=== PATIENT | female | born 1935 | race Caucasian/White ===

== ENCOUNTER 2020-04-03 10:06 | Inpatient (IN) | payer MEDICARE, BC ==
[~2020-04-03] VITALS: Ht 167.6 cm; Wt 63.5 kg
[2020-04-03] MEDS ORDERED: IV NS 0.9% 1,000 ML IV ONE (10:11)
--- NOTE | 2020-04-03 10:40 | NUR ---
[facility] for diarrhea, lethargy. per ems +covid 19. On room air, breathing evenly and unlabored. connected to the monitor and pulse ox. kept comfortable, will continue to monitor accordingly.
[2020-04-03] MEDS ORDERED: ACID1TAB14 PO (10:43)
[2020-04-03] MEDS ORDERED: CHOL100045 PO (10:43)
[2020-04-03] MEDS ORDERED: BIOT5000 PO (10:43)
[2020-04-03] MEDS ORDERED: CALC-20 PO (10:43)
[2020-04-03] MEDS ORDERED: MECL-159 PO (10:43)
[2020-04-03] MEDS ORDERED: ALBU8.5H8 IH ×2 (10:43)
[2020-04-03] MEDS ORDERED: ATOR10TA PO (10:43)
[2020-04-03] MEDS ORDERED: ACET-868 PO (10:43)
[2020-04-03] MEDS ORDERED: TELM80TA2 PO (10:43)
[2020-04-03] MEDS ORDERED: MYRBETRIQ PO (10:43)
[2020-04-03] MEDS ORDERED: NUT.237L28 PO (10:43)
[2020-04-03] MEDS ORDERED: MAGN400T8 PO (10:43)
[2020-04-03] MEDS ORDERED: ASPI-1169 PO (10:43)
[2020-04-03] MEDS ORDERED: IBUP-2413 PO (10:43)
[2020-04-03] MEDS ORDERED: ALLO100T PO (10:43)
[2020-04-03] MEDS ORDERED: ESCI10TA PO (10:43)
[2020-04-03] MEDS ORDERED: FLUT16SP NS (10:43)
[2020-04-03] MEDS ORDERED: ACID1TAB12 PO (10:43)
[2020-04-03] MEDS ORDERED: HYDR25TA4 PO (10:43)
--- NOTE | 2020-04-03 11:00 | NUR ---
MOVE SHEET SUBMITTED
[2020-04-03 11:08] LABS: BASOPHILS % (AUTO) 0.8 % (0.0-2.0); EOSINOPHILS % (AUTO) 0.1 % (0.0-6.0); HEMATOCRIT 40 % (33-45); HEMOGLOBIN 13.3 g/dL (11.5-14.8); LYMPHOCYTES # (AUTO) 1.2 /CMM (0.8-4.8); LYMPHOCYTES % (AUTO) 18.6 % (20.0-44.0); MEAN CORPUSCULAR HGB CONC 34 g/dl (31.0-36.0); MEAN CORPUSCULAR VOLUME 93 fL (82-100); MONOCYTES # (AUTO) 0.6 /CMM (0.1-1.30); NEUTROPHILS # (AUTO) 4.4 /CMM (1.8-8.9); NEUTROPHILS % (AUTO) 70.5 % (43.0-81.0); PLATELET COUNT (AUTO) 176 /CMM (150-450); RED BLOOD CELL COUNT(AUTO) 4.26 MIL/uL (4.0-5.2); WHITE BLOOD COUNT (AUTO) 6.2 K/uL (4.3-11.0)
[2020-04-03 11:14] LABS: APPEARANCE,URINE Clear (CLEAR); BILIRUBIN,URINE Negative (NEGATIVE); BLOOD, URINE Moderate Ery/uL (NEGATIVE); COLOR,URINE Yellow (YELLOW); KETONES,URINE Negative (NEGATIVE); LEUKOCYTE ESTERASE ,URINE Negative (NEGATIVE); NITRITE, URINE Negative (NEGATIVE); PROTEIN,URINE 30 mg/dl (NEGATIVE); UGLUCOSE Negative (NEGATIVE); UROBILINOGEN,URINE 0.2 EU/dL (0.2)
[2020-04-03 11:17] LABS: CALCIUM, SERUM 8.1 mg/dL (8.5-10.1); CARBON DIOXIDE 20 mmol/L (21-32); CHLORIDE 102 mmol/L (98-107); CREATININE 0.8 mg/dL (0.6-1.3); GLUCOSE 105 mg/dL (74-106); POTASSIUM 3.3 mmol/L (3.5-5.1); SODIUM SERUM 135 mmol/L (136-145); UREA NITROGEN, BLOOD 19 mg/dL (7-18)
[2020-04-03 11:23] LABS: BACTERIA,URINE Few /HPF (None Seen); SQUAMOUS EPITHELIAL CELL,UR Few /HPF (None Seen); WBC,URINE 0-2 /HPF (0-3)
[2020-04-03 11:29] LABS: ALANINE AMINOTRANSFERASE 27 U/L (12-78); ALBUMIN 2.6 g/dL (3.4-5.0); ALKALINE PHOSPHATASE 64 U/L (46-116); ASPARTATE AMINOTRANSFERASE 51 U/L (15-37); B-TYPE NATRIURETIC PEPTIDE 310 PG/ML (0-125); BILIRUBIN,TOTAL 0.6 mg/dL (0.2-1.0); TOTAL PROTEIN, SERUM 6.6 g/dL (6.4-8.2)
--- NOTE | 2020-04-03 11:31 | NUR ---
GOT BED 208-1
--- NOTE | 2020-04-03 11:47 | NUR ---
covid 19 swab collected and sent to lab
--- NOTE | 2020-04-03 12:25 | NUR ---
covid 19 antigen collected and sent to lab
--- NOTE | 2020-04-03 12:46 | NUR ---
report given to Oksana NAVAS for norberto
--- NOTE | 2020-04-03 12:47 | NUR ---
wheeled patient via gurney accompanied by EMT in no distress. RN at bedside to assume care.
--- NOTE | 2020-04-03 13:10 | NUR ---
SVP BUSINESS DEVELOPMENT ADMISSION NOTES RECEIVED PATIENT FROM ER VIA [facility], ACCOMPANIED BY ONE ED STAFF. PT IS AWAKE/ORIENTED X 2-3. WITH ADMITTING DIAGNOSIS OF DIARRHEA. PT CLEAN AND DRY AT THIS TIME. PT INCONTINENT WITH BOWEL AND BLADDER. BODY CHECK DONE. ON ROOM AIR WITH O2 SAT OF 98%. RESPIRATION IS EVEN AND EASY WITH NO SHORTNESS OF BREATH. IV # 20 ON LEFT AC INTACT AND FLUSHING WELL. BED KEPT AT LOW POSITION. SAFETY PRECAUTION OBSERVED. CALL LIGHT LEFT WITHIN REACH. WILL CONTINUE TO MONITOR. Addendum: 04/03/20 at 1550 by GRETA AZAR RN NOTED SUPERFICIAL SKIN OPENING ON MID UPPER BACK UPON INITIAL ASSESSMENT. NO SIGNS OF INFECTION NOTED. WILL CONTINUE TO MONITOR.
[2020-04-03 13:30] LABS: CREATINE KINASE, TOTAL 516 U/L (26-192); FERRITIN 343 ng/mL (8-388)
[2020-04-03 13:34] LABS: C-REACTIVE PROTEIN 3.3 mg/dL (0.0-0.9)
[2020-04-03] MEDS ORDERED: MECLIZINE HCL 25 MG TABLET PO PRN (15:00)
[2020-04-03] MEDS ORDERED: ALBUTEROL SULFATE INH 18 GM HFA.AER.AD IH PRN (15:00)
[2020-04-03 16:00] VITALS: BP 132/62
[2020-04-03] MEDS ORDERED: ONDANSETRON HCL/PF 4 MG/2 ML VIAL IVP PRN (16:00)
[2020-04-03] MEDS ORDERED: Z GUARD REMEDY 2 OZ OINT TP PRN (16:00)
[2020-04-03 16:19] LABS: D-DIMER 1.19 mg/L(FEU (0.17-0.50)
[2020-04-03] MEDS ORDERED: ENOXAPARIN SODIUM 40 MG/0.4 ML DISP.SYRIN SQ SCH (16:30)
[2020-04-03] MEDS ORDERED: PIPERACILLIN /TAZOBACTAM 3.375 G in IV D5W 50 ML IV ONE (17:00)
[2020-04-03] MEDS: ESCITALOPRAM OXALATE (10 MG) 10 MG TABLET PO SCH (18:34)
[2020-04-03] MEDS: MAGNESIUM OXIDE 400 MG TABLET PO SCH (18:34)
--- NOTE | 2020-04-03 18:48 | NUR ---
BICYCLE II ASSEMBLER CLOSING NOTES PT REMAINS IN BED RESTING. ALERT AND ORIENTED X2-3. NO ACUTE DISTRESS NOTED. RESPIRATION IS EVEN AND EASY WITH NO SOB. ALL DUE MEDS GIVEN ORDERED. SL IV #20 ON LEFT AC REMAINS INTACT. SAFETY PRECAUTION OBSERVED. CALL LIGHT LEFT WITHIN REACH. WILL ENDORSE TO NEXT SHIFT FOR MAGY.
--- NOTE | 2020-04-03 19:42 | NUR ---
MS RN OPENING NOTES PATIENT AWAKE IN BED. A/OX1-2. STABLE ON RA; NO S/S OF ACUTE RESPIRATORY DISTRESS; BREATHING IS EVEN AND UNLABORED. PATIENT DENIES PAIN AT THIS TIME. IV PRESENT ON LEFT AC, SIZE 20, INTACT & PATENT, NS RUNNING TKO. CONTACT/DROPLET PRECAUTIONS IN PLACE FOR POSITIVE COVID. SAFETY MEASURES IN PLACE AND PATIENT'S NEEDS MET. BED LOCKED, ALARM ON, SIDE RAILS X3, CALL LIGHT WITHIN REACH. WILL CONTINUE TO MONITOR.
[2020-04-03 20:26] VITALS: BP 119/72
--- NOTE | 2020-04-03 20:54 | NUR ---
PT AGITATED AND REFUSED AN ECHO AND WANTED THE EXAM DONE TOMORROW.
[2020-04-03] MEDS ORDERED: PIPERACILLIN /TAZOBACTAM 2.25 G in IV D5W 50 ML IV SCH (21:00)
[2020-04-03] MEDS: ATORVASTATIN 10 MG TABLET PO SCH (21:39)
[2020-04-03] MEDS: VALSARTAN 80 MG TABLET PO SCH (21:39)
[2020-04-03] MEDS: ENOXAPARIN SODIUM 40 MG/0.4 ML DISP.SYRIN SQ SCH (21:40)
[2020-04-04] MEDS: PIPERACILLIN /TAZOBACTAM 3.375 G in IV D5W 100 ML IV SCH ×4 (00:54→23:00)
--- NOTE | 2020-04-04 07:36 | NUR ---
PEST CONTROL SERVICE SALES AGENT CLOSING NOTES PATIENT SLEEPING, EASY TO AWAKEN. A/OX1-2. STABLE ON RA; NO S/S OF ACUTE RESPIRATORY DISTRESS; BREATHING IS EVEN AND UNLABORED. NO S/S OF PAIN NOTED. IV PRESENT ON LEFT AC, SIZE 20, INTACT & PATENT, NS RUNNING TKO. CONTACT/DROPLET PRECAUTIONS IN PLACE FOR POSITIVE COVID. SAFETY MEASURES IN PLACE AND PATIENT'S NEEDS MET. BED LOCKED, ALARM ON, SIDE RAILS X3, CALL LIGHT WITHIN REACH. WILL ENDORSE TO DAY SHIFT RN PLAN OF CARE.
[2020-04-04] MEDS: PANTOPRAZOLE 40 MG TABLET.DR PO SCH (07:51)
[2020-04-04 07:58] LABS: BASOPHILS % (AUTO) 0.7 % (0.0-2.0); EOSINOPHILS % (AUTO) 0.1 % (0.0-6.0); HEMATOCRIT 41 % (33-45); HEMOGLOBIN 13.8 g/dL (11.5-14.8); LYMPHOCYTES # (AUTO) 1.3 /CMM (0.8-4.8); MEAN CORPUSCULAR HGB CONC 34 g/dl (31.0-36.0); MEAN CORPUSCULAR VOLUME 92 fL (82-100); MONOCYTES # (AUTO) 0.7 /CMM (0.1-1.30); MONOCYTES % (AUTO) 15.9 % (2.0-12.0); NEUTROPHILS # (AUTO) 2.4 /CMM (1.8-8.9); NEUTROPHILS % (AUTO) 54.3 % (43.0-81.0); PLATELET COUNT (AUTO) 171 /CMM (150-450); RED BLOOD CELL COUNT(AUTO) 4.47 MIL/uL (4.0-5.2); WHITE BLOOD COUNT (AUTO) 4.5 K/uL (4.3-11.0)
[2020-04-04 08:00] VITALS: BP 103/52
--- NOTE | 2020-04-04 08:24 | NUR ---
RN NOTES CALLED PHARMACY TO REQUEST ZOSYN IV , WILL ADMINISTER WHEN IT ARRIVES.
[2020-04-04] MEDS: ALLOPURINOL 100 MG TABLET PO SCH (08:37)
[2020-04-04] MEDS: ACIDOPHILUS/BULGARICUS 1 EACH TAB.CHEW PO SCH (08:37)
[2020-04-04] MEDS: CALCIUM CARB 600MG /VIT D 1 EACH TABLET PO SCH (08:37)
[2020-04-04] MEDS: ASPIRIN 81 MG TAB.CHEW PO SCH (08:37)
[2020-04-04] MEDS: VALSARTAN 80 MG TABLET PO SCH ×2 (08:38→21:41)
[2020-04-04] MEDS: DEXAMETHASONE SOD PHOSPHATE 10 MG/ML VIAL IV SCH (08:38)
[2020-04-04 08:49] LABS: CALCIUM, SERUM 8.4 mg/dL (8.5-10.1); MAGNESIUM 1.9 mg/dL (1.8-2.4); PHOSPHORUS 2.7 mg/dL (2.5-4.9); POTASSIUM 2.9 mmol/L (3.5-5.1)
[2020-04-04 08:53] LABS: LYMPHOCYTES % (MANUAL) 35 % (16-48); NEUTROPHILS % (MANUAL) 53 (42-76)
[2020-04-04 08:54] LABS: MONOCYTES % (MANUAL) 12 % (0-11.0)
[2020-04-04 09:00] LABS: THYROID STIMULATING HORMONE 1.601 uIU/mL (0.358-3.74)
[2020-04-04] MEDS: ESCITALOPRAM OXALATE (10 MG) 10 MG TABLET PO SCH (17:10)
[2020-04-04] MEDS: MAGNESIUM OXIDE 400 MG TABLET PO SCH (17:11)
--- NOTE | 2020-04-04 18:17 | NUR ---
RN CLOSING NOTES PATIENT SLEEPING, A/OX1-2. STABLE ON RA; NO S/S OF ACUTE RESPIRATORY DISTRESS; BREATHING IS EVEN AND UNLABORED. NO S/S OF PAIN NOTED. IV PRESENT ON LEFT AC, SIZE 20, INTACT & PATENT, NS RUNNING TKO. CONTACT/DROPLET PRECAUTIONS IN PLACE FOR POSITIVE COVID. SAFETY MEASURES IN PLACE AND PATIENT'S NEEDS MET. BED LOCKED, ALARM ON, SIDE RAILS X3, CALL LIGHT WITHIN REACH. WILL ENDORSE TO PM SHIFT RN FOR CONTINUITY OF CARE.
--- NOTE | 2020-04-04 18:53 | NUR ---
rn notes Patient will have MRI, Called family to verify if patient has any metals, son Matthew did not picker feeder , next person is daughter Rivka. per Shiloh she will call back to verify.
--- NOTE | 2020-04-04 18:53 | NUR ---
RN CLOSING NOTES PATIENT SLEEPING, A/OX1-2. STABLE ON RA; NO S/S OF ACUTE RESPIRATORY DISTRESS; BREATHING IS EVEN AND UNLABORED. NO S/S OF PAIN NOTED.PATIENT IS NPO. PATIENT WILL HAVE A SWALLOW EVAL TOMORROW. PATIENT WILL GO FOR MRI SHORTLY. IV PRESENT ON LEFT AC, SIZE 20, INTACT & PATENT, NS RUNNING TKO. CONTACT/DROPLET PRECAUTIONS IN PLACE FOR POSITIVE COVID. SAFETY MEASURES IN PLACE AND PATIENT'S NEEDS MET. BED LOCKED, ALARM ON, SIDE RAILS X3, CALL LIGHT WITHIN REACH. WILL ENDORSE TO PM SHIFT RN FOR CONTINUITY OF CARE.
--- NOTE | 2020-04-04 19:00 | NUR ---
MS/RN OPENING NOTES: RECEIVED PT IN BED, RESTING. A/OX2. WITH EPISODES OF CONFUSION. VERBALLY RESPONSIVE AND ABLE TO MAKE NEEDS KNOWN. NO SOB NOTED. ON 2L OXYGEN VIA NC. NO S/S OF DISTRESS. BREATHING EVEN AND UNLABORED. SKIN INTACT. IV ON THE LEFT AC #20G SL. NO C/O PAIN AT THIS TIME. SAFETY MEASURES IN PLACE. BED IN LOW, LOCKED POSITION WITH SR UPX2. BED ALARM ON, CALL LIGHT WITHIN REACH. WILL CONTINUE TO MONITOR ACCORDINGLY.
[2020-04-04 20:00] VITALS: BP 118/65
[2020-04-04] MEDS: ENOXAPARIN SODIUM 40 MG/0.4 ML DISP.SYRIN SQ SCH (21:36)
[2020-04-04] MEDS: ATORVASTATIN 10 MG TABLET PO SCH (21:38)
--- NOTE | 2020-04-04 22:00 | NUR ---
MS/RN NOTES: MEDS GIVEN CRUSHED WITH APPLE SAUCE. TOLERATED WELL. WILL CONTINUE TO MONITOR.
[2020-04-05 07:01] LABS: BASOPHILS % (AUTO) 0.2 % (0.0-2.0); EOSINOPHILS % (AUTO) 0.1 % (0.0-6.0); HEMATOCRIT 42 % (33-45); HEMOGLOBIN 14.5 g/dL (11.5-14.8); LYMPHOCYTES # (AUTO) 0.9 /CMM (0.8-4.8); LYMPHOCYTES % (AUTO) 28.1 % (20.0-44.0); MEAN CORPUSCULAR HGB CONC 34 g/dl (31.0-36.0); MEAN CORPUSCULAR VOLUME 92 fL (82-100); MONOCYTES # (AUTO) 0.5 /CMM (0.1-1.30); MONOCYTES % (AUTO) 15.2 % (2.0-12.0); NEUTROPHILS # (AUTO) 1.8 /CMM (1.8-8.9); NEUTROPHILS % (AUTO) 56.4 % (43.0-81.0); PLATELET COUNT (AUTO) 165 /CMM (150-450); WHITE BLOOD COUNT (AUTO) 3.1 K/uL (4.3-11.0)
--- NOTE | 2020-04-05 07:15 | NUR ---
MS/RN NOTES: PT ABLE TO TURN AND REPOSITION HERSELF ON THE BED. KEPT WARM AND COMFORTABLE, CLEAN AND DRY THROUGHOUT THE SHIFT.
--- NOTE | 2020-04-05 07:20 | NUR ---
MS/RN CLOSING NOTES: PT REMAINS IN BED, RESTING. REMAINS A/OX2. WITH EPISODES OF CONFUSION. VERBALLY RESPONSIVE AND ABLE TO MAKE NEEDS KNOWN. NO SOB NOTED. ON 2L OXYGEN VIA NC. NO S/S OF DISTRESS. BREATHING EVEN AND UNLABORED. NO SIGNIFICANT CHANGES IN CONDITION. HAD 1 SOFT BM FOR THE WHOLE SHIFT BUT NO DIARRHEA. IV ON THE LEFT AC #20G SL. NO C/O PAIN AT THIS TIME. SAFETY MEASURES IN PLACE. BED IN LOW, LOCKED POSITION WITH SR UPX2. BED ALARM ON, CALL LIGHT WITHIN REACH. ALL MEDS GIVEN ORDERED. ALL NURSING NEEDS MET AND RENDERED. ENDORSED TO DAY SHIFT FOR MAGY.
[2020-04-05 07:25] LABS: CALCIUM, SERUM 8.3 mg/dL (8.5-10.1); CREATININE 1.2 mg/dL (0.6-1.3); PHOSPHORUS 3.1 mg/dL (2.5-4.9); POTASSIUM 3.2 mmol/L (3.5-5.1)
--- NOTE | 2020-04-05 07:26 | NUR ---
MS/RN OPENING NOTES RECEIVED PATIENT ON BED. PATIENT IN NO APPARENT RESPIRATORY DISTRESS NOTED. NO COMPLAINED OF PAIN AT THIS TIME. WILL CONTINUE TO MONITOR.
[2020-04-05] MEDS: PANTOPRAZOLE 40 MG TABLET.DR PO SCH (07:40)
[2020-04-05] MEDS: PIPERACILLIN /TAZOBACTAM 3.375 G in IV D5W 100 ML IV SCH ×3 (07:43→23:31)
[2020-04-05 08:10] VITALS: BP 142/82
[2020-04-05] MEDS: DEXAMETHASONE SOD PHOSPHATE 10 MG/ML VIAL IV SCH (09:24)
[2020-04-05] MEDS: CALCIUM CARB 600MG /VIT D 1 EACH TABLET PO SCH (09:25)
[2020-04-05] MEDS: VALSARTAN 80 MG TABLET PO SCH ×2 (09:25→21:19)
[2020-04-05] MEDS: ASPIRIN 81 MG TAB.CHEW PO SCH (09:25)
[2020-04-05] MEDS: ACIDOPHILUS/BULGARICUS 1 EACH TAB.CHEW PO SCH (09:25)
[2020-04-05] MEDS: ALLOPURINOL 100 MG TABLET PO SCH (09:25)
[2020-04-05] MEDS ORDERED: POTASSIUM CHLORIDE 20 MEQ POWDER PACKET PO ONE (11:00)
--- NOTE | 2020-04-05 17:42 | NUR ---
MS/RN NOTES PATIENT VERBALIZED THAT SHE WAS ANXIOUS, MD IS AWARE AND ORDER ATIVAN 0.5 MG 1 TAB PO. NOTED AND CARRIED OUT.
[2020-04-05] MEDS ORDERED: LORAZEPAM 0.5 MG TABLET PO ONE (17:50)
[2020-04-05] MEDS: MAGNESIUM OXIDE 400 MG TABLET PO SCH (18:21)
[2020-04-05] MEDS: ESCITALOPRAM OXALATE (10 MG) 10 MG TABLET PO SCH (18:22)
[2020-04-05 20:00] VITALS: BP 131/71
--- NOTE | 2020-04-05 20:03 | NUR ---
MS/RN NOTES PATIENT IS ON BED. NO COMPLAINED OF PAIN. NO RESPIRATORY DISTRESS NOTED. IV ANTIBIOTIC AND IV MEDICATION WAS NOT GIVEN DUE TO NO IV ACCESS MD AND WELL DIGGER IS AWARE, WAITING FOR MIDLINE NURSE. SEEN AND EXAMINED BY MD WITH ORDERS MADE AND CARRIED OUT. WILL ENDORSED TO SUPERVISOR BEET END FOR MAGY.
--- NOTE | 2020-04-05 20:30 | NUR ---
RN NOTES: COVID POSITIVE, PPE UTILIZED, WITH USE OF N95 AND FACESHIELD
[2020-04-05 20:32] VITALS: BP 131/71
--- NOTE | 2020-04-05 21:00 | NUR ---
COMPUTER PUBLISHER: RECEIVED FROM DAY RN DION. PT IN BED, AWAKE, A/O X1 TO SELF, ON 5L OXYGEN VIA NC, BUT PT KEPT TAKING OFF OXYGEN, RECEIVED WITH NO IV ACCESS, AWAITING FOR MIDLINE INSERTION. PT S/P RAPID RESPONSE IN AM AFTER AMBULATING, WAS FOUND ALMOST PASSING OUT. VS TAKEN AND RECORDED BY CULLET TRUCKER. MONITORING TEMPERATURE, COOLING MEASURES PROVIDED. ON SOFT DIET. RECEIVED CALL FROM PT'S DAUGHTER NAMED BLAZE MADSEN, PER DTR SHE IS THE DPOA FOR PT (MEDICAL/HEALTH AND FINANCIAL), WITH INSTRUCTIONS NOT TO RELEASE ANY INFORMATION TO SB MONTAÑO, HER SISTER. SHE CLAIMED THAT HER SISTER SB, STOLE MONEY FROM HER MOTHER AND THEY ARE CURRENTLY TALKING WITH PLANT ELECTRICIAN, PER BLAZE, ALL INFORMATION CAN ONLY BE RELEASE TO HER BEING DPOA. WILL POST A NOTE ON PT'S CHART TO MADE ASSIGNED TEAM AWARE, ALSO WILL WRITE ON ENDORSEMENT PAPER. SAFETY PRECAUTIONS FOR FALL INITAITED, CALL LIGHT IN REACH, WILL CONTINUE MONITORING PT.
[2020-04-05 21:15] VITALS: BP 140/71
[2020-04-05] MEDS: ATORVASTATIN 10 MG TABLET PO SCH (21:19)
[2020-04-05] MEDS: ACETAMINOPHEN 325 MG TABLET PO PRN (21:20)
[2020-04-05] MEDS: ENOXAPARIN SODIUM 40 MG/0.4 ML DISP.SYRIN SQ SCH (21:20)
--- NOTE | 2020-04-05 21:35 | NUR ---
RN NOTES: CONNECTED TO CONTINOUS PULSE OX MONITORING, ROSA ISELA IN USE, ON 5L NC, SPO2 96%, 88% ON RA, ALL DUE MEDS administered
--- NOTE | 2020-04-05 22:00 | NUR ---
RN NOTES: NOTIFIED RT LINSEY FOR CONTINUOUS PULSE OXIMETRY ORDER, PER LINSEY THERE IS NO AVAILABLE PULSE OX RIGHT NOW, CURRENTLY PT IS CONNECTED TO VITAL SIGN MACHINE WITH PULSE OXIMETRY.
--- NOTE | 2020-04-05 22:03 | NUR ---
rn notes: picc rn just arrived
--- NOTE | 2020-04-05 22:11 | NUR ---
rn notes: catalina midline g 18 inserted by sharath picc rn
[2020-04-06 04:00] VITALS: BP 122/71
--- NOTE | 2020-04-06 07:04 | NUR ---
END OF SHIFT REPORT: PT REMAINS A/O X1, ON 5L OXYGEN VIA NC, ON CONTINUOUS PULSE OX, SPO2 95%, IV ACCESS PATENT AND FLUSHING WELL, ON HL, NO S/S OF IV INFILTRATION NOTED. ALL DUE MEDS ADMINISTERED. VS REMAIN STABLE, NEEDS ATTENDED. NO EPISODE OF LOOSE BM NOTED THROUGH SHIFT. SAFETY PRECAUTIONS FOR FALL REMAIN ENGAGED, CALL LIGHT IN REACH, WILL ENDORSE TO DAY RN FOR CONTINUITY OF CARE.
--- NOTE | 2020-04-06 07:45 | NUR ---
RN NOTES RECEIVED PATIENT IN BED RESTING COMFORTABLY IN MODERATE HIGH BACK REST. A/O X1, ON 5L OXYGEN VIA NC, ON CONTINUOUS PULSE OX, SPO2 95%, NO SIGNS OF DISTRESS NOTED AT THIS TIMES. IV ACCESS ON CRUZ #18, MIDLINE, REMAINS PATENT AND INTACT, SAFETY MEASURES IN PLACE, BED IN LOWEST LOCKED POSITION WITH SIDE RAILS UP X2. CALL LIGHT IN REACH, WILL CONTINUE TO MONITOR.
[2020-04-06 08:20] LABS: BASOPHILS % (AUTO) 0.2 % (0.0-2.0); HEMATOCRIT 39 % (33-45); HEMOGLOBIN 13.1 g/dL (11.5-14.8); LYMPHOCYTES # (AUTO) 1.4 /CMM (0.8-4.8); LYMPHOCYTES % (AUTO) 29.6 % (20.0-44.0); MEAN CORPUSCULAR HGB CONC 34 g/dl (31.0-36.0); MEAN CORPUSCULAR VOLUME 91 fL (82-100); MONOCYTES # (AUTO) 0.4 /CMM (0.1-1.30); NEUTROPHILS # (AUTO) 2.9 /CMM (1.8-8.9); NEUTROPHILS % (AUTO) 62.2 % (43.0-81.0); PLATELET COUNT (AUTO) 158 /CMM (150-450); RED BLOOD CELL COUNT(AUTO) 4.27 MIL/uL (4.0-5.2); WHITE BLOOD COUNT (AUTO) 4.7 K/uL (4.3-11.0)
[2020-04-06 08:32] VITALS: BP 152/69
--- NOTE | 2020-04-06 08:40 | NUR ---
MS RN NOTES RECEIVED PATIENT FROM RN FOR CONTINUITY OF CARE. WILL CONTINUE TO MONITOR PATIENT.
[2020-04-06] MEDS: PIPERACILLIN /TAZOBACTAM 3.375 G in IV D5W 100 ML IV SCH ×2 (08:43→15:27)
[2020-04-06] MEDS: ASPIRIN 81 MG TAB.CHEW PO SCH (08:52)
[2020-04-06] MEDS: CALCIUM CARB 600MG /VIT D 1 EACH TABLET PO SCH (08:52)
[2020-04-06] MEDS: DEXAMETHASONE SOD PHOSPHATE 10 MG/ML VIAL IV SCH (08:53)
[2020-04-06] MEDS: ACIDOPHILUS/BULGARICUS 1 EACH TAB.CHEW PO SCH (08:54)
[2020-04-06] MEDS: PANTOPRAZOLE 40 MG TABLET.DR PO SCH (08:54)
[2020-04-06] MEDS: VALSARTAN 80 MG TABLET PO SCH ×2 (08:54→22:33)
[2020-04-06] MEDS: ALLOPURINOL 100 MG TABLET PO SCH (08:54)
[2020-04-06 09:20] LABS: CALCIUM, SERUM 8.1 mg/dL (8.5-10.1); CREATININE 1.3 mg/dL (0.6-1.3); PHOSPHORUS 2.4 mg/dL (2.5-4.9); POTASSIUM 3.2 mmol/L (3.5-5.1)
[2020-04-06] MEDS ORDERED: K PHOS NEUTRAL 250 MG TABLET PO ONE (15:30)
[2020-04-06 17:15] VITALS: BP 117/77
[2020-04-06] MEDS: ESCITALOPRAM OXALATE (10 MG) 10 MG TABLET PO SCH (18:13)
[2020-04-06] MEDS: MAGNESIUM OXIDE 400 MG TABLET PO SCH (18:13)
--- NOTE | 2020-04-06 18:45 | NUR ---
MS RN CLOSING NOTES PATIENT IN BED, SLEEP. DURING THE DAY PATIENT WOKEN UP AND ABLE TO ANSWER SOME QUESTIONS. PATIENT ON OXYGEN THERAPY VIA NASAL CANNULA @ 3LPM; BREATHING EVEN AND UNLABORED, NO SOB PRESENT DURING THE SHIFT. NO COMPLAINS OF PAIN. CRUZ MIDLINE PRESENT AND INTACT. ALL NEEDS ATTENDED TO THROUGHOUT THE DAY. SAFETY PRECAUTIONS IN PLACE; BED IN LOW POSITION AND LOCKED, RAILS UP X2, CALL LIGHT WITHIN REACH. WILL ENDORSE TO TIRE REPAIRER NURSE.
[2020-04-06 20:00] VITALS: BP 150/71
--- NOTE | 2020-04-06 20:24 | NUR ---
MSS2/RN DURING INITIAL ROUNDING ASSESSMENT, PATIENT WAS SLEEPING, APPEAR COMFORTABLE, BREATHING EVEN AND UNLABORED, CALL LIGHT IN REACH, FALL PRECAUTIONS PER PROTOCOL. WILL MONITOR.
[2020-04-06] MEDS: ENOXAPARIN SODIUM 40 MG/0.4 ML DISP.SYRIN SQ SCH (21:00)
[2020-04-06] MEDS ORDERED: ATORVASTATIN 10 MG TABLET ONE (22:16)
[2020-04-06] MEDS: ATORVASTATIN 10 MG TABLET PO SCH (22:36)
[2020-04-07] MEDS: PIPERACILLIN /TAZOBACTAM 3.375 G in IV D5W 100 ML IV SCH ×4 (00:43→23:01)
--- NOTE | 2020-04-07 06:13 | NUR ---
MS2/RN PATIENT SLEEPING, EASILY AROUSABLE, APPEAR COMFORTABLE, NO SIGNS OF DISTRESS NOTED, CALL LIGHT IN REACH, ALL NEEDS ATTENDED AT THIS TIME, WILL CONTINUE TO MONITOR.
--- NOTE | 2020-04-07 07:35 | NUR ---
RN NOTES RECEIVED PATIENT IN BED RESTING COMFORTABLY IN MODERATE HIGH BACK REST. A/O X1. NO SIGNS OF DISTRESS NOTED AT THIS TIME. IV ACCESS ON CRUZ #18, PATENT AND INTACT. SAFETY PRECAUTION IN PLACE. BED IN LOWEST LOCKED POSITION, SIDE RAILS UP X 2, CALL LIGHT WITHIN REACH. WILL CONTINUE TO MONITOR.
[2020-04-07] MEDS: PANTOPRAZOLE 40 MG TABLET.DR PO SCH (08:57)
[2020-04-07] MEDS: ASPIRIN 81 MG TAB.CHEW PO SCH (08:57)
[2020-04-07] MEDS: ACIDOPHILUS/BULGARICUS 1 EACH TAB.CHEW PO SCH (08:58)
[2020-04-07] MEDS: DEXAMETHASONE SOD PHOSPHATE 10 MG/ML VIAL IV SCH (08:58)
[2020-04-07] MEDS: ALLOPURINOL 100 MG TABLET PO SCH (08:58)
[2020-04-07] MEDS: CALCIUM CARB 600MG /VIT D 1 EACH TABLET PO SCH (08:58)
[2020-04-07] MEDS: VALSARTAN 80 MG TABLET PO SCH ×2 (08:58→20:30)
[2020-04-07 15:09] LABS: CALCIUM, SERUM 8.3 mg/dL (8.5-10.1); MAGNESIUM 2.1 mg/dL (1.8-2.4); PHOSPHORUS 2.2 mg/dL (2.5-4.9); POTASSIUM 3.4 mmol/L (3.5-5.1)
[2020-04-07 15:13] LABS: BASOPHILS % (AUTO) 0.7 % (0.0-2.0); EOSINOPHILS % (AUTO) 0.5 % (0.0-6.0); HEMATOCRIT 44 % (33-45); LYMPHOCYTES # (AUTO) 0.3 /CMM (0.8-4.8); LYMPHOCYTES % (AUTO) 5.9 % (20.0-44.0); MEAN CORPUSCULAR HGB CONC 34 g/dl (31.0-36.0); MEAN CORPUSCULAR VOLUME 90 fL (82-100); MONOCYTES # (AUTO) 0.2 /CMM (0.1-1.30); MONOCYTES % (AUTO) 3.3 % (2.0-12.0); NEUTROPHILS # (AUTO) 4.5 /CMM (1.8-8.9); NEUTROPHILS % (AUTO) 89.6 % (43.0-81.0); PLATELET COUNT (AUTO) 172 /CMM (150-450); RED BLOOD CELL COUNT(AUTO) 4.85 MIL/uL (4.0-5.2)
[2020-04-07] MEDS ORDERED: K PHOS NEUTRAL 250 MG TABLET PO ONE (16:30)
[2020-04-07] MEDS ORDERED: POTASSIUM CHLORIDE 20 MEQ TAB.PRT.SR PO ONE (16:30)
[2020-04-07] MEDS: ESCITALOPRAM OXALATE (10 MG) 10 MG TABLET PO SCH (17:00)
[2020-04-07] MEDS: MAGNESIUM OXIDE 400 MG TABLET PO SCH (17:00)
--- NOTE | 2020-04-07 18:50 | NUR ---
RN NOTES PATIENT IN BED RESTING COMFORTABLY IN MODERATE HIGH BACK REST. A/O X1. NO SIGNS OF DISTRESS NOTED THROUGHOUT THE SHIFT. IV ACCESS ON CRUZ #18, PATENT AND INTACT. SAFETY PRECAUTION IN PLACE. BED IN LOWEST LOCKED POSITION, SIDE RAILS UP X 2, CALL LIGHT WITHIN REACH. WILL ENDORSE TO AUTOMATION SPECIALIST NURSE FOR MAGY.
--- NOTE | 2020-04-07 19:35 | NUR ---
MS NAVAS OPENING NOTES PATIENT RECEIVED RESTING IN BED COMFORTABLY; A/OX1, CONFUSED; PATIENT ON 5L NC, BREATHING EVEN AND UNLABORED; TOLERATING ROOM AIR WELL; NO SOB NOTED AT THIS TIME; ISOLATION PRECAUTIONS MAINTAINED; CRUZ MIDLINE INTACT AND PATENT; FLUSHING WELL; SAFETY PRECAUTIONS IMPLEMENTED; BED LOCKED IN LOW POSITION; SIDE RAILSX2; WILL CONT PLAN OF CARE AND CONT TO MONITOR PATIENT Addendum: 04/08/20 at 0207 by SHAKILA NORTH RN *TOLERATING 5LPM VIA NC WELL*, PATIENT ON CONTINUOUS SPO2 MONITOR, PATIENT SATTING 99%
[2020-04-07 20:00] VITALS: BP 141/67
[2020-04-07] MEDS: ENOXAPARIN SODIUM 40 MG/0.4 ML DISP.SYRIN SQ SCH (20:28)
[2020-04-07] MEDS: ATORVASTATIN 10 MG TABLET PO SCH (21:01)
--- NOTE | 2020-04-08 06:50 | NUR ---
MS RN CLOSING NOTES PATIENT RESTING IN BED COMFORTABLY; A/OX1, CONFUSED, ABLE TO FOLLOW COMMANDS; PATIENT ON 5LPM VIA NC; SATTING 99%, TOLERATING WELL; NO SOB NOTED; CRUZ MIDLINE # 18 INTACT AND PATENT, FLUSHING WELL; ISOLATION PRECAUTIONS MAINTAINED; ALL NEEDS RENDERED; SAFETY PRECAUTIONS IMPLEMENTED; WILL ENDORSE MAGY TO ONCOMING SHIFT
[2020-04-08 07:06] LABS: BASOPHILS % (AUTO) 0.1 % (0.0-2.0); EOSINOPHILS % (AUTO) 0.1 % (0.0-6.0); HEMATOCRIT 42 % (33-45); HEMOGLOBIN 14.5 g/dL (11.5-14.8); LYMPHOCYTES # (AUTO) 1.1 /CMM (0.8-4.8); LYMPHOCYTES % (AUTO) 15.7 % (20.0-44.0); MEAN CORPUSCULAR HGB CONC 35 g/dl (31.0-36.0); MEAN CORPUSCULAR VOLUME 89 fL (82-100); MONOCYTES # (AUTO) 0.5 /CMM (0.1-1.30); MONOCYTES % (AUTO) 6.6 % (2.0-12.0); NEUTROPHILS # (AUTO) 5.3 /CMM (1.8-8.9); NEUTROPHILS % (AUTO) 77.5 % (43.0-81.0); PLATELET COUNT (AUTO) 192 /CMM (150-450); RED BLOOD CELL COUNT(AUTO) 4.68 MIL/uL (4.0-5.2); WHITE BLOOD COUNT (AUTO) 6.9 K/uL (4.3-11.0)
--- NOTE | 2020-04-08 07:30 | NUR ---
Patient resting in bed , breathing unlabored and even on 5l O2 via nasal canula. Patient is awake and oriented x1-2 , confused at baseline. Will continue to monitor
[2020-04-08 08:00] VITALS: BP 134/95
[2020-04-08 08:27] LABS: ALBUMIN 2.4 g/dL (3.4-5.0); BILIRUBIN,TOTAL 0.6 mg/dL (0.2-1.0); CALCIUM, SERUM 8.4 mg/dL (8.5-10.1); PHOSPHORUS 1.9 mg/dL (2.5-4.9); POTASSIUM 3.6 mmol/L (3.5-5.1); TOTAL PROTEIN, SERUM 7.2 g/dL (6.4-8.2)
[2020-04-08] MEDS: PIPERACILLIN /TAZOBACTAM 3.375 G in IV D5W 100 ML IV SCH ×3 (09:20→23:06)
[2020-04-08] MEDS: ASPIRIN 81 MG TAB.CHEW PO SCH (09:21)
[2020-04-08] MEDS: ACIDOPHILUS/BULGARICUS 1 EACH TAB.CHEW PO SCH (09:21)
[2020-04-08] MEDS: VALSARTAN 80 MG TABLET PO SCH ×2 (09:21→21:21)
[2020-04-08] MEDS: DEXAMETHASONE SOD PHOSPHATE 10 MG/ML VIAL IV SCH (09:21)
[2020-04-08] MEDS: CALCIUM CARB 600MG /VIT D 1 EACH TABLET PO SCH (09:21)
[2020-04-08] MEDS: ALLOPURINOL 100 MG TABLET PO SCH (09:22)
[2020-04-08] MEDS: PANTOPRAZOLE 40 MG TABLET.DR PO SCH (09:23)
[2020-04-08] MEDS ORDERED: K PHOS NEUTRAL 250 MG TABLET PO ONE ×2 (11:00→11:30)
[2020-04-08 16:00] VITALS: BP 144/100
[2020-04-08] MEDS: ESCITALOPRAM OXALATE (10 MG) 10 MG TABLET PO SCH (17:13)
[2020-04-08] MEDS: MAGNESIUM OXIDE 400 MG TABLET PO SCH (17:13)
--- NOTE | 2020-04-08 19:14 | NUR ---
Patient in stable condition , remains on oxygen via NC 5l, tolerating well. All needs attended, patient encouraged to increase food and fluid intake. Safety precautions observed and call light within reach. Will endorse to next shift for MAGY
[2020-04-08 20:00] VITALS: BP 151/73
[2020-04-08] MEDS: ENOXAPARIN SODIUM 40 MG/0.4 ML DISP.SYRIN SQ SCH (21:24)
[2020-04-08] MEDS: ATORVASTATIN 10 MG TABLET PO SCH (21:25)
--- NOTE | 2020-04-09 06:00 | NUR ---
MS RN CLOSING NOTES: PATIENT IS RESTING IN BED, ASLEEP, AROUSABLE. NO S/S OF DISTRESS NOTED. CALL LIGHT WITHIN REACH. BED ALARM ON. BED INLOWEST AND LOCKED POSITION. TURNED AND REPOSITIONED Q 2 HOURS. HEELS OFFLOADED.
[2020-04-09 08:00] VITALS: BP 123/83
--- NOTE | 2020-04-09 08:00 | NUR ---
MS RN OPENING NOTES Received Patient resting in bed. A/O x 1. VS stable with no acute distress. Breathing even and unlabored on 5LPM via NC with no respiratory distress. Denies pain. No signs and symptoms of pain. CRUZ Midline clean, intact, patent and flushing well. Safety precautions in place. Bed locked and set to lowest position with side rails x 2 up. All needs rendered at this time. Call light within reach. Will continue to monitor.
[2020-04-09 08:01] LABS: CALCIUM, SERUM 8.2 mg/dL (8.5-10.1)
[2020-04-09] MEDS: DEXAMETHASONE SOD PHOSPHATE 10 MG/ML VIAL IV SCH (09:03)
[2020-04-09] MEDS: ALLOPURINOL 100 MG TABLET PO SCH (09:03)
[2020-04-09] MEDS: ACIDOPHILUS/BULGARICUS 1 EACH TAB.CHEW PO SCH (09:03)
[2020-04-09] MEDS: CALCIUM CARB 600MG /VIT D 1 EACH TABLET PO SCH (09:03)
[2020-04-09] MEDS: VALSARTAN 80 MG TABLET PO SCH ×2 (09:03→21:05)
[2020-04-09] MEDS: ASPIRIN 81 MG TAB.CHEW PO SCH (09:03)
[2020-04-09] MEDS: PANTOPRAZOLE 40 MG TABLET.DR PO SCH (09:03)
[2020-04-09] MEDS: PIPERACILLIN /TAZOBACTAM 3.375 G in IV D5W 100 ML IV SCH ×2 (09:04→15:12)
[2020-04-09] MEDS ORDERED: K PHOS NEUTRAL 250 MG TABLET PO ONE (11:00)
[2020-04-09] MEDS: MAGNESIUM OXIDE 400 MG TABLET PO SCH (17:02)
[2020-04-09] MEDS: ESCITALOPRAM OXALATE (10 MG) 10 MG TABLET PO SCH (17:02)
--- NOTE | 2020-04-09 18:46 | NUR ---
MS RN CLOSING NOTES Patient resting in bed. A/O x 1. VS stable with no acute distress. Breathing even and unlabored on 5LPM via NC with no respiratory distress. Denies pain. No signs and symptoms of pain. CRUZ Midline clean, intact, patent and flushing well. Safety precautions in place. Bed locked and set to lowest position with side rails x 2 up. All needs rendered at this time. Call light within reach. Will endorse plan of care to oncoming shift.
--- NOTE | 2020-04-09 19:33 | NUR ---
RN OPENING NOTES PATIENT RECEIVED RESTING IN BED A/O X 1-2. ON 3L OF O2 WITH BREATHING EVEN AND UNLABORED, NO SIGN OF ACUTE DISTRESS. NO COMPLAINTS OF PAIN OR DISCOMFORT AT THE MOMENT. IV LOCATED ON CRUZ MIDLINE INTACT AND PATENT. SAFETY PRECAUTIONS IN PLACE WITH BED IN LOWEST POSITION, CALL LIGHT WITHIN REACH, BREAK ON, SIDE RAILS UP. WILL CONTINUE TO MONITOR THROUGHOUT THE NIGHT.
[2020-04-09 20:00] VITALS: BP 128/70
[2020-04-09] MEDS: ATORVASTATIN 10 MG TABLET PO SCH (21:07)
[2020-04-09] MEDS: ENOXAPARIN SODIUM 40 MG/0.4 ML DISP.SYRIN SQ SCH (21:08)
[2020-04-10] MEDS: PIPERACILLIN /TAZOBACTAM 3.375 G in IV D5W 100 ML IV SCH (00:16)
--- NOTE | 2020-04-10 07:00 | NUR ---
RN CLOSING NOTES PATIENT RESTING IN BED A/O X 1-2. ON 2L OF O2 WITH BREATHING EVEN AND UNLABORED, NO SIGN OF ACUTE DISTRESS. NO COMPLAINTS OF PAIN OR DISCOMFORT AT THE MOMENT. IV LOCATED ON CRUZ MIDLINE INTACT AND PATENT. SAFETY PRECAUTIONS IN PLACE WITH BED IN LOWEST POSITION, CALL LIGHT WITHIN REACH, BREAK ON, SIDE RAILS UP. ALL NEEDS ATTENDED TO. PATIENT KEPT CLEAN AND DRY THROUGHOUT THE NIGHT. WILL ENDORSE TO ONCOMING SHIFT ABOUT MAGY.
[2020-04-10 07:26] LABS: BASOPHILS % (AUTO) 0.1 % (0.0-2.0); EOSINOPHILS % (AUTO) 0.1 % (0.0-6.0); HEMATOCRIT 41 % (33-45); HEMOGLOBIN 14.2 g/dL (11.5-14.8); LYMPHOCYTES # (AUTO) 1.4 /CMM (0.8-4.8); LYMPHOCYTES % (AUTO) 19.5 % (20.0-44.0); MEAN CORPUSCULAR HGB CONC 35 g/dl (31.0-36.0); MEAN CORPUSCULAR VOLUME 90 fL (82-100); MONOCYTES # (AUTO) 0.6 /CMM (0.1-1.30); NEUTROPHILS # (AUTO) 5.2 /CMM (1.8-8.9); NEUTROPHILS % (AUTO) 72.3 % (43.0-81.0); PLATELET COUNT (AUTO) 229 /CMM (150-450); RED BLOOD CELL COUNT(AUTO) 4.58 MIL/uL (4.0-5.2); WHITE BLOOD COUNT (AUTO) 7.2 K/uL (4.3-11.0)
--- NOTE | 2020-04-10 07:30 | NUR ---
RN Opening Note Received patient in bed, AO x 1-2, able to responds all stimuli. patient does no c/o pain , respiratory even and unlabored with oxygen at 2LPM and O2sat 96%. Skin is warm to touch, keep clean.dry, intact midline site with TKO, no fever observed. Kept bed in lock with elevated HOB for ensure airway and aspiration precaution, and remain lower position of bed for safety. Will continue to monitor.
[2020-04-10 08:00] VITALS: BP 150/100
[2020-04-10] MEDS: DEXAMETHASONE SOD PHOSPHATE 10 MG/ML VIAL IV SCH (08:20)
[2020-04-10] MEDS: ACIDOPHILUS/BULGARICUS 1 EACH TAB.CHEW PO SCH (08:20)
[2020-04-10] MEDS: ALLOPURINOL 100 MG TABLET PO SCH (08:20)
[2020-04-10] MEDS: ASPIRIN 81 MG TAB.CHEW PO SCH (08:20)
[2020-04-10] MEDS: CALCIUM CARB 600MG /VIT D 1 EACH TABLET PO SCH (08:20)
[2020-04-10] MEDS: PANTOPRAZOLE 40 MG TABLET.DR PO SCH (08:20)
[2020-04-10] MEDS: VALSARTAN 80 MG TABLET PO SCH ×2 (08:20→21:20)
[2020-04-10 08:22] LABS: CALCIUM, SERUM 8.5 mg/dL (8.5-10.1); CREATININE 0.9 mg/dL (0.6-1.3); PHOSPHORUS 2.1 mg/dL (2.5-4.9)
[2020-04-10] MEDS: ENSURE ENLIVE 237 ML LIQUID (VANILLA) PO SCH ×2 (11:00→17:17)
--- NOTE | 2020-04-10 15:00 | NUR ---
Patient noticed potassium level 3.0 this morning and MD aware, no new order at this time.
[2020-04-10 15:28] LABS: C-REACTIVE PROTEIN 3.8 mg/dL (0.0-0.9)
[2020-04-10] MEDS ORDERED: K PHOS NEUTRAL 250 MG TABLET PO ONE (15:45)
[2020-04-10 16:00] VITALS: BP 154/84
[2020-04-10] MEDS ORDERED: POTASSIUM CHLORIDE 20 MEQ TAB.PRT.SR PO ONE (16:00)
--- NOTE | 2020-04-10 16:00 | NUR ---
Received new order for low level of potassium and patient took all due meds with compliance.
[2020-04-10] MEDS: MAGNESIUM OXIDE 400 MG TABLET PO SCH (17:10)
[2020-04-10] MEDS: ESCITALOPRAM OXALATE (10 MG) 10 MG TABLET PO SCH (17:10)
--- NOTE | 2020-04-10 18:01 | NUR ---
RN Closing Note Patient in bed awaking comfortably, does no appears pain or distress, but anxious. Skin is warm to touch, keep clean/dry, intact midline with TKO. Respiratory even and unlabored with oxygen at 2 LPM via n/c, O2sat 92%. Keep in bed locked with elevated HOB for ensure airway and aspiration precaution and low bed position for safety. Call light within reach, will endorse director of instruction.
--- NOTE | 2020-04-10 19:50 | NUR ---
RN NOTES RECEIVED PATIENT AWAKE ON BED, ALERT ORIENTED X3 WITH EPISODE OF CONFUSION. DENIES ANY PAIN OR DISCOMFORT AT THIS. BREATHING EVEN AND UNLABORED. NO SIGNS OF ACUTE RESPIRATORY DISTRESS NOTED, SATING 95% AT 2LPM O2 VIA NASAL CANNULA. RIGHT UPPER ARM MIDLINE INTACT AND PATENT. NO SIGNS OF FEVER. SAFETY MEASURES IN PLACE, ASPIRATION PRECAUTION EMPHASIZED. BED IN LOW LOCKED POSITION. CALL LIGHT WITH IN EASY REACH. ALL NEEDS ANTICIPATED, WILL CONTINUE TO MONITOR ACCORDINGLY.
[2020-04-10 20:00] VITALS: BP 111/56
[2020-04-10 20:26] VITALS: BP 111/56
[2020-04-10] MEDS: ATORVASTATIN 10 MG TABLET PO SCH (21:20)
[2020-04-10] MEDS: ENOXAPARIN SODIUM 40 MG/0.4 ML DISP.SYRIN SQ SCH (21:21)
--- NOTE | 2020-04-10 21:30 | NUR ---
RN NOTES PATIENT'S DAUGHTER ( BLAZE - [phone] ). UPDATED HER REGARDING PATIENT'S CURRENT STATUS. NO FURTHER REQUEST MADE.
--- NOTE | 2020-04-11 06:30 | NUR ---
RN NOTES ALL NEEDS ATTENDED AND MET. PATIENT ASLEEP EASILY AROUSABLE., ORIENTED X3 WITH EPISODE OF CONFUSION. DENIES ANY PAIN OR DISCOMFORT AT THIS. BREATHING EVEN AND UNLABORED. NO SIGNS OF ACUTE RESPIRATORY DISTRESS NOTED, SATING 95% AT 2LPM O2 VIA NASAL CANNULA. RIGHT UPPER ARM MIDLINE INTACT AND PATENT. NO SIGNS OF FEVER. SAFETY MEASURES IN PLACE, ASPIRATION PRECAUTION EMPHASIZED. BED IN LOW LOCKED POSITION. CALL LIGHT WITH IN EASY REACH. ALL NEEDS ANTICIPATED, WILL ENDORSE TO AM NURSE FOR CONTINUITY OF CARE.
--- NOTE | 2020-04-11 07:25 | NUR ---
ms rn received on bed, awake, alert x1,not in any form of distress, patient's o2 is on and off, patient refusing it. 90% at this tijme, no trouble breathing, denies pain at this time, will monitor patient.
[2020-04-11 08:00] VITALS: BP 146/110
--- NOTE | 2020-04-11 08:20 | NUR ---
ms rn breakfast served,due meds given,tolerated well, patient has x1 bm,,loose stool at this time.
[2020-04-11 08:53] LABS: BASOPHILS % (AUTO) 0.2 % (0.0-2.0); EOSINOPHILS % (AUTO) 0.4 % (0.0-6.0); HEMATOCRIT 38 % (33-45); HEMOGLOBIN 13.3 g/dL (11.5-14.8); LYMPHOCYTES # (AUTO) 1.4 /CMM (0.8-4.8); LYMPHOCYTES % (AUTO) 16.2 % (20.0-44.0); MEAN CORPUSCULAR HGB CONC 35 g/dl (31.0-36.0); MEAN CORPUSCULAR VOLUME 90 fL (82-100); MONOCYTES # (AUTO) 0.7 /CMM (0.1-1.30); MONOCYTES % (AUTO) 7.3 % (2.0-12.0); NEUTROPHILS # (AUTO) 6.8 /CMM (1.8-8.9); NEUTROPHILS % (AUTO) 75.9 % (43.0-81.0); PLATELET COUNT (AUTO) 260 /CMM (150-450); RED BLOOD CELL COUNT(AUTO) 4.24 MIL/uL (4.0-5.2); WHITE BLOOD COUNT (AUTO) 8.9 K/uL (4.3-11.0)
[2020-04-11] MEDS: ENSURE ENLIVE 237 ML LIQUID (VANILLA) PO SCH ×2 (09:00→18:04)
[2020-04-11] MEDS: VALSARTAN 80 MG TABLET PO SCH ×2 (09:03→21:59)
[2020-04-11] MEDS: ASPIRIN 81 MG TAB.CHEW PO SCH (09:03)
[2020-04-11] MEDS: CALCIUM CARB 600MG /VIT D 1 EACH TABLET PO SCH (09:03)
[2020-04-11] MEDS: ACIDOPHILUS/BULGARICUS 1 EACH TAB.CHEW PO SCH (09:03)
[2020-04-11] MEDS: ALLOPURINOL 100 MG TABLET PO SCH (09:03)
[2020-04-11] MEDS: DEXAMETHASONE SOD PHOSPHATE 10 MG/ML VIAL IV SCH (09:04)
[2020-04-11] MEDS: PANTOPRAZOLE 40 MG TABLET.DR PO SCH (09:05)
[2020-04-11 09:44] LABS: CALCIUM, SERUM 8.1 mg/dL (8.5-10.1); CREATININE 0.9 mg/dL (0.6-1.3); MAGNESIUM 2.1 mg/dL (1.8-2.4); PHOSPHORUS 1.8 mg/dL (2.5-4.9); POTASSIUM 4.3 mmol/L (3.5-5.1)
--- NOTE | 2020-04-11 10:20 | NUR ---
ms rn patient has another bm.loose,was seen by valeriano swann w/ orders made and carried out.
[2020-04-11 12:47] LABS: ABG BASE EXCESS 1.6 mmol/L; ABG OXYGEN SATURATION 96.9 % (92.0-98.5); ABG PCO2 29.8 mmHg (35.0-45.0); ABG PH 7.516 (7.350-7.450); ABG PO2 84.3 mmHg (75.0-100.0); AaDO2 130.6 mmHg; COHb 0.3 % (0.5-1.5); MetHb 0.1 % (0.0-1.5); O2Hb 96.5 % (94.0-97.0); SITE, ABG Right Radial; VENT MODE, BG 4L NC
[2020-04-11] MEDS ORDERED: NEUTRA PHOS 1 POWD.PACKET PO ONE (14:00)
[2020-04-11 16:00] VITALS: BP 132/61
[2020-04-11] MEDS: MAGNESIUM OXIDE 400 MG TABLET PO SCH (17:53)
[2020-04-11] MEDS: ESCITALOPRAM OXALATE (10 MG) 10 MG TABLET PO SCH (17:53)
[2020-04-11] MEDS: ACETAMINOPHEN 325 MG TABLET PO PRN (18:03)
--- NOTE | 2020-04-11 19:00 | NUR ---
ms rn on bed,no distress noted
[2020-04-11 20:00] VITALS: BP 136/71
--- NOTE | 2020-04-11 20:00 | NUR ---
RN NOTES RECEIVED PT.SLEEPING BUT AROUSABLE, NOT IN DISTRESS, O2 @4L,A/OX2-3, DENIES PAIN, NO SOB, CALL LIGHT WITHIN REACH, SIDERAILSUPX2, CONTINUE TO MONITOR
[2020-04-11] MEDS: ATORVASTATIN 10 MG TABLET PO SCH (21:58)
[2020-04-11] MEDS: ENOXAPARIN SODIUM 40 MG/0.4 ML DISP.SYRIN SQ SCH (22:12)
[2020-04-12 05:05] LABS: BASOPHILS % (AUTO) 0.3 % (0.0-2.0); EOSINOPHILS % (AUTO) 0.4 % (0.0-6.0); HEMATOCRIT 37 % (33-45); HEMOGLOBIN 12.6 g/dL (11.5-14.8); LYMPHOCYTES # (AUTO) 0.7 /CMM (0.8-4.8); LYMPHOCYTES % (AUTO) 9.1 % (20.0-44.0); MEAN CORPUSCULAR HGB CONC 34 g/dl (31.0-36.0); MEAN CORPUSCULAR VOLUME 82 fL (82-100); MONOCYTES # (AUTO) 0.2 /CMM (0.1-1.30); MONOCYTES % (AUTO) 2.2 % (2.0-12.0); PLATELET COUNT (AUTO) 276 /CMM (150-450); RED BLOOD CELL COUNT(AUTO) 4.52 MIL/uL (4.0-5.2)
[2020-04-12 06:00] VITALS: BP 145/89
--- NOTE | 2020-04-12 06:26 | NUR ---
RN NOTES AWAKE, MORNING CARE RENDERED, NOT IN DISTRESS, NO PAIN NOTED, SIDERALSUPX2, PT. NEEDS ATTENDED
--- NOTE | 2020-04-12 07:44 | NUR ---
RN OPENING NOTE Patient is resting in bed, A/O x2, showing no signs of acute distress, saturating 90-96% on 4L NC. HOB kept >40 degrees. Bed is in lowest position, side rails x3 in upright position, call light is within reach, fall safety and aspiration precautions enforced. Will continue with plan of care.
[2020-04-12 07:55] LABS: CALCIUM, SERUM 8.6 mg/dL (8.5-10.1); CREATININE 0.7 mg/dL (0.6-1.3); MAGNESIUM 2.2 mg/dL (1.8-2.4); PHOSPHORUS 2.4 mg/dL (2.5-4.9); POTASSIUM 4.3 mmol/L (3.5-5.1)
[2020-04-12 08:00] VITALS: BP 121/92
[2020-04-12] MEDS: ACIDOPHILUS/BULGARICUS 1 EACH TAB.CHEW PO SCH (08:20)
[2020-04-12] MEDS: ASPIRIN 81 MG TAB.CHEW PO SCH (08:20)
[2020-04-12] MEDS: DEXAMETHASONE SOD PHOSPHATE 10 MG/ML VIAL IV SCH (08:21)
[2020-04-12] MEDS: PANTOPRAZOLE 40 MG TABLET.DR PO SCH (08:21)
[2020-04-12] MEDS: CALCIUM CARB 600MG /VIT D 1 EACH TABLET PO SCH (08:21)
[2020-04-12] MEDS: ALLOPURINOL 100 MG TABLET PO SCH (08:21)
[2020-04-12] MEDS: VALSARTAN 80 MG TABLET PO SCH ×2 (08:21→21:16)
[2020-04-12] MEDS: ENSURE ENLIVE 237 ML LIQUID (VANILLA) PO SCH ×2 (09:54→16:44)
[2020-04-12] MEDS ORDERED: NEUTRA PHOS 1 POWD.PACKET PO ONE (11:00)
--- NOTE | 2020-04-12 11:10 | NUR ---
RN NOTE TITRATED O2 DOWN TO 3L NC PATIENT IS SATURATING 97%
[2020-04-12 16:00] VITALS: BP 164/61
[2020-04-12 16:58] VITALS: BP 164/61
[2020-04-12] MEDS: ESCITALOPRAM OXALATE (10 MG) 10 MG TABLET PO SCH (17:44)
[2020-04-12] MEDS: MAGNESIUM OXIDE 400 MG TABLET PO SCH (17:44)
--- NOTE | 2020-04-12 19:15 | NUR ---
RN CLOSING NOTE Patient is resting in bed, A/O x2, showing no signs of acute distress, saturating 90-96% on 4L NC. HOB kept >[address] Moseley, patient is not cleared for DC yet, continue plan of care. All patient needs met, all due medications given, patient kept clean and dry throughout shift. Bed is in lowest position, side rails x3 in upright position, call light is within reach, fall safety and aspiration precautions enforced. Will endorse to media specialist for MAGY.
--- NOTE | 2020-04-12 19:48 | NUR ---
MS RN OPENING NOTES PATIENT AWAKE IN BED. A/OX2. ON 3L NC; NO S/S OF ACUTE RESPIRATORY DISTRESS; BREATHING IS EVEN AND UNLABORED; CONTINUOUS SPO2 READING 98%. NO S/S OF PAIN NOTED. MIDLINE PRESENT ON RIGHT UPPER ARM, INTACT & PATENT, HEP LOCKED. CONTACT/DROPLET PRECAUTIONS IN PLACE FOR POSITIVE COVID 19. SAFETY MEASURES IN PLACE AND PATIENT'S NEEDS MET. BED LOCKED, ALARM ON, SIDE RAILS X3, CALL LIGHT WITHIN REACH. WILL CONTINUE TO MONITOR.
[2020-04-12 20:00] VITALS: BP 120/65
[2020-04-12] MEDS: ATORVASTATIN 10 MG TABLET PO SCH (21:16)
[2020-04-12] MEDS: ENOXAPARIN SODIUM 40 MG/0.4 ML DISP.SYRIN SQ SCH (21:18)
[2020-04-13 07:09] LABS: CALCIUM, SERUM 8.6 mg/dL (8.5-10.1); CARBON DIOXIDE 24 mmol/L (21-32); CHLORIDE 100 mmol/L (98-107); CREATININE 0.7 mg/dL (0.6-1.3); GLUCOSE 92 mg/dL (74-106); PHOSPHORUS 3.2 mg/dL (2.5-4.9); SODIUM SERUM 133 mmol/L (136-145); UREA NITROGEN, BLOOD 30 mg/dL (7-18)
--- NOTE | 2020-04-13 07:30 | NUR ---
MS RN CLOSING NOTES PATIENT AWAKE. A/OX2. ON 4L NC; NO S/S OF ACUTE RESPIRATORY DISTRESS; BREATHING IS EVEN AND UNLABORED; CONTINUOUS SPO2 READING 95%. NO S/S OF PAIN NOTED. MIDLINE PRESENT ON RIGHT UPPER ARM, INTACT & PATENT, NS RUNNING TKO. CONTACT/DROPLET PRECAUTIONS IN PLACE FOR POSITIVE COVID 19. SAFETY MEASURES IN PLACE AND PATIENT'S NEEDS MET. BED LOCKED, ALARM ON, SIDE RAILS X3, CALL LIGHT WITHIN REACH. ENDORSED TO DAY SHIFT RN PLAN OF CARE.
--- NOTE | 2020-04-13 07:35 | NUR ---
MS RN OPENING SHIFT NOTES RECEIVED PATIENT RESTING IN BED, A/O X2. ON 4L NC, NO SOB NOTED OR REPORTED BY PATIETNT, NO S/S OF ACUTE RESPIRATORY DISTRESS; BREATHING IS EVEN AND UNLABORED, PATIENT ON CONTINUOUS SPO2 READING 95%. NO S/S OF PAIN NOTED. MIDLINE TO RIGHT UPPER ARM INTACT & PATENT WITH NS RUNNING TKO. PATIENT IS ON CONTACT/DROPLET PRECAUTIONS IN PLACE FOR POSITIVE COVID 19. BED IS AT LOWEST POSTION AND LOCKED WITH CALL LIGHT WITH IN REACH ALL SAFETY MEASURES IN PLACE, WILL CONTINUE TO MONITOR PATIENT
[2020-04-13 08:00] VITALS: BP 148/75
[2020-04-13] MEDS: PANTOPRAZOLE 40 MG TABLET.DR PO SCH (08:57)
[2020-04-13] MEDS: CALCIUM CARB 600MG /VIT D 1 EACH TABLET PO SCH (08:59)
[2020-04-13] MEDS: DEXAMETHASONE SOD PHOSPHATE 10 MG/ML VIAL IV SCH (08:59)
[2020-04-13] MEDS: ASPIRIN 81 MG TAB.CHEW PO SCH (08:59)
[2020-04-13] MEDS: VALSARTAN 80 MG TABLET PO SCH ×2 (09:00→20:44)
[2020-04-13] MEDS: ACIDOPHILUS/BULGARICUS 1 EACH TAB.CHEW PO SCH (09:00)
[2020-04-13] MEDS: ALLOPURINOL 100 MG TABLET PO SCH (09:04)
[2020-04-13] MEDS: ENSURE ENLIVE 237 ML LIQUID (VANILLA) PO SCH ×2 (09:18→17:32)
[2020-04-13 09:20] LABS: C-REACTIVE PROTEIN 3.9 mg/dL (0.0-0.9)
[2020-04-13 12:44] LABS: ABG BASE EXCESS 1.5 mmol/L; ABG OXYGEN SATURATION 90.4 % (92.0-98.5); ABG PCO2 28.5 mmHg (35.0-45.0); ABG PH 7.525 (7.350-7.450); ABG PO2 52.9 mmHg (75.0-100.0); AaDO2 170.7 mmHg; O2Hb 89.5 % (94.0-97.0); SITE, ABG Right Radial; VENT MODE, BG 4 lpm via NC
[2020-04-13 16:00] VITALS: BP 143/75
[2020-04-13] MEDS: PIPERACILLIN /TAZOBACTAM 3.375 G in IV D5W 50 ML IV SCH ×2 (16:34→20:43)
[2020-04-13] MEDS ORDERED: INVESTIGATIONAL MED MISC 1 EA in IV NS 0.9% 250 ML IV ONE (17:00)
[2020-04-13] MEDS: MAGNESIUM OXIDE 400 MG TABLET PO SCH (17:23)
[2020-04-13] MEDS: ESCITALOPRAM OXALATE (10 MG) 10 MG TABLET PO SCH (17:23)
[2020-04-13 18:04] LABS: ALBUMIN 2.1 g/dL (3.4-5.0); BILIRUBIN,DIRECT 0.2 mg/dL (0.0-0.2); BILIRUBIN,TOTAL 0.7 mg/dL (0.2-1.0); TOTAL PROTEIN, SERUM 6.7 g/dL (6.4-8.2)
--- NOTE | 2020-04-13 18:51 | NUR ---
MS CLOSING SHIFT NOTES PATIENT AWAKE. A/OX2. ON 4L NC, NO S/S OF ACUTE RESPIRATORY DISTRESS, BREATHING IS EVEN AND UNLABORED, ON CONTINUOUS SPO2 READING 95%. WITH NO C/O PAIN THIS SHIFT. IV TO RT UPPER ARM INTACT & PATENT, PATIENT ON CONTACT/DROPLET PRECAUTIONS IN PLACE FOR POSITIVE COVID 19. BED AT LOWEST POSITION AND LOCKED, ALARM ON, SIDE RAILS X3, CALL LIGHT WITHIN REACH
--- NOTE | 2020-04-13 19:30 | NUR ---
PT RESTING IN BED A/O X 2 4L NC WITH NO S/S OF PAIN OR DISTRESS.SAFETY MEASURES IN PLACE. WILL CONT TO MONITOR
[2020-04-13 19:52] VITALS: BP 143/61
[2020-04-13 20:00] VITALS: BP 143/61
[2020-04-13] MEDS: ENOXAPARIN SODIUM 40 MG/0.4 ML DISP.SYRIN SQ SCH (20:45)
[2020-04-13] MEDS: ATORVASTATIN 10 MG TABLET PO SCH (21:03)
[2020-04-14] MEDS: PIPERACILLIN /TAZOBACTAM 3.375 G in IV D5W 50 ML IV SCH ×3 (04:37→21:32)
--- NOTE | 2020-04-14 06:14 | NUR ---
Pt still on 4lpm via nc 02 sat 96%. sleep well, monitored accordingly, repositioned every 2 hours, good skin care at all times. kept clean, dry and comfortable. needs attended and anticipated, am care rendered, no s/s of distress. stable. safety measures at all times. will endorse plan of care.
--- NOTE | 2020-04-14 07:10 | NUR ---
MS RN NOTES RECEIVED PATIENT IN BED ALERT AND AWAKE X1. ABLE TO ANSWER SIMPLE QUESTIONS. ON O2 AT 5L/MIN VIA NC MICHELLE WELL. HOB ELEVATED. NO SOB. RIGHT UPPER ARM MIDLINE INTACT AND PATENT. BED IN LOWEST POSITION, LOCKED. BED ALARM ON. CALL LIGHT WITHIN REACH. FREQUENT VISUAL CHECK DONE.
[2020-04-14 08:00] VITALS: BP 150/80
[2020-04-14] MEDS: PANTOPRAZOLE 40 MG TABLET.DR PO SCH (08:16)
[2020-04-14] MEDS: ACIDOPHILUS/BULGARICUS 1 EACH TAB.CHEW PO SCH (08:16)
[2020-04-14] MEDS: CALCIUM CARB 600MG /VIT D 1 EACH TABLET PO SCH (08:16)
[2020-04-14] MEDS: ALLOPURINOL 100 MG TABLET PO SCH (08:16)
[2020-04-14] MEDS: ASPIRIN 81 MG TAB.CHEW PO SCH (08:16)
[2020-04-14] MEDS: ENSURE ENLIVE 237 ML LIQUID (VANILLA) PO SCH ×2 (08:39→17:13)
[2020-04-14] MEDS: VALSARTAN 80 MG TABLET PO SCH ×2 (08:40→21:33)
[2020-04-14 09:03] LABS: PHOSPHORUS 3.4 mg/dL (2.5-4.9); POTASSIUM 5.4 mmol/L (3.5-5.1)
[2020-04-14 09:38] LABS: BASOPHILS % (AUTO) 0.1 % (0.0-2.0); EOSINOPHILS % (AUTO) 0.5 % (0.0-6.0); HEMATOCRIT 44 % (33-45); HEMOGLOBIN 14.8 g/dL (11.5-14.8); LYMPHOCYTES # (AUTO) 1.5 /CMM (0.8-4.8); LYMPHOCYTES % (AUTO) 10.9 % (20.0-44.0); MEAN CORPUSCULAR HGB CONC 34 g/dl (31.0-36.0); MEAN CORPUSCULAR VOLUME 92 fL (82-100); MONOCYTES # (AUTO) 0.8 /CMM (0.1-1.30); MONOCYTES % (AUTO) 5.9 % (2.0-12.0); NEUTROPHILS % (AUTO) 82.6 % (43.0-81.0); PLATELET COUNT (AUTO) 396 /CMM (150-450); RED BLOOD CELL COUNT(AUTO) 4.79 MIL/uL (4.0-5.2); WHITE BLOOD COUNT (AUTO) 13.4 K/uL (4.3-11.0)
--- NOTE | 2020-04-14 11:00 | NUR ---
MS RN NOTES PATIENT SEEN AND EXAMINED BY DR. ROBERTSON.
[2020-04-14] MEDS ORDERED: SODIUM POLYSTYRENE SULFONATE 15 G/60 ML BOTTLE PO ONE (11:30)
[2020-04-14 16:00] VITALS: BP 125/69
[2020-04-14] MEDS: INVESTIGATIONAL MED MISC 1 EA in IV NS 0.9% 250 ML IV SCH (17:13)
[2020-04-14] MEDS: MAGNESIUM OXIDE 400 MG TABLET PO SCH (17:13)
[2020-04-14] MEDS: ESCITALOPRAM OXALATE (10 MG) 10 MG TABLET PO SCH (17:13)
[2020-04-14 17:44] LABS: APPEARANCE,URINE CLEAR (CLEAR); BILIRUBIN,URINE NEGATIVE (NEGATIVE); BLOOD, URINE NEGATIVE Ery/uL (NEGATIVE); COLOR,URINE YELLOW (YELLOW); KETONES,URINE NEGATIVE (NEGATIVE); LEUKOCYTE ESTERASE ,URINE NEGATIVE (NEGATIVE); NITRITE, URINE NEGATIVE (NEGATIVE); PH,URINE 7.5 (5.0-8.0); PROTEIN,URINE NEGATIVE (NEGATIVE); UGLUCOSE NEGATIVE (NEGATIVE); UROBILINOGEN,URINE 0.2 EU/dL (0.2)
[2020-04-14] MEDS ORDERED: LORAZEPAM INJ 2 MG/ML VIAL IV ONE (18:00)
--- NOTE | 2020-04-14 18:01 | NUR ---
MS RN NOTES PATIENT VERY RESTLESS, HOLDING HER BREATH AND REMOVING NASAL CANNULA. DAUGHTER BLAZE HAS BEEN TAKING TO PATIENT IN HOPES OF CALMING HER DOWN BUT TO NO AVAIL. INFORMED DR. ROBERTSON WITH ORDER FOR ATIVAN 1MG X1 ONLY. PATENT REPEATEDLY VERBALIZES, " I CAN'T DO THIS, FATHER HELP ME." PATIENT HAS NO VERBALIZATION OF ANY SUICIDAL INTENT OR PLAN. FREQUENT VISUAL CHECK DONE.
--- NOTE | 2020-04-14 19:00 | NUR ---
RN OPENING NOTES Received patient awake on bed on O2 via NC @ 5LPM with fluctuating SpO2 noted. Pt is confused, noted removing NC. Calming interventions applied to patient. Will continue to monitor accordingly. On bed clean, dry and comfortable. On fall and aspiration precautions.
--- NOTE | 2020-04-14 19:31 | NUR ---
MS RN NOTES PATIENT NOW RESTING COMFORTABLY IN BED. HOB ELEVATED. ON O2 AT 5L/MIN VIA NC MICHELLE WELL WITH SPO2 OF 94%. NO S/S OF RESPIRATORY DISTRESS. RIGHT UPPER ARM MIDLINE INTACT AND PATENT. 2ND DOSE OF REMDESIVIR GIVEN TODAY MICHELLE WELL. BED IN LOWEST POSITION, LOCKED. BED ALARM ON. CALL LIGHT WITHIN REACH. IN NO APPARENT DISTRESS.
[2020-04-14 20:00] VITALS: BP 109/54
[2020-04-14 20:18] VITALS: BP 109/54
[2020-04-14] MEDS: ENOXAPARIN SODIUM 40 MG/0.4 ML DISP.SYRIN SQ SCH (21:36)
[2020-04-14] MEDS: ATORVASTATIN 10 MG TABLET PO SCH (21:41)
[2020-04-14] MEDS ORDERED: QUETIAPINE FUMARATE 25 MG TABLET PO SCH (22:00)
--- NOTE | 2020-04-14 22:50 | NUR ---
RN NOTES Pt's behavior unchanged. Noted repeatedly removing O2, unable to follow simple commands. SpO2 below 90s. banquet server on call MD notified, louise order carried out. Applied bilateral soft wrist restraints. Will continue to monitor accordingly.
[2020-04-15] VITALS (14 sets, daily range): BP systolic 85–110; BP diastolic 34–58
--- NOTE | 2020-04-15 02:00 | NUR ---
RN NOTES Pt's SpO2 unstable with 5LPM O2 via NC. Pt noted agitated at this time. Put into 10LPM via simple face mask, Kept SpO2 >92%. sign painter helper MD notified. Received a call back from ARCENIO Cobb with order noted and carried out. Will continue to monitor accordingly.
[2020-04-15] MEDS ORDERED: FUROSEMIDE 20 MG/2 ML VIAL IV SCH (04:30)
[2020-04-15] MEDS: PIPERACILLIN /TAZOBACTAM 3.375 G in IV D5W 50 ML IV SCH ×3 (04:42→20:57)
--- NOTE | 2020-04-15 06:05 | NUR ---
RN NOTES Pt noted more lethargic compared to at the start of shift. Responsive to name only at this time. RR mildly elevated to 24-28/min with use of accessory and abdominal muscles. SpO2 on 90-92% despite on 10LPM O2 via simple face mask, drops when patient moves or talks. S/P Lasix 20mg IV Push. callisthenics instructor MD notified, received order from DIGITAL MEDIA COORDINATOR Jillian Cobb. Placed stat ABG as ordered. RT Owen notified, coming to perform the ordered procedure.
[2020-04-15 06:35] LABS: ABG BASE EXCESS 2.3 mmol/L; ABG OXYGEN SATURATION 83.7 % (92.0-98.5); ABG PCO2 28.9 mmHg (35.0-45.0); ABG PH 7.535 (7.350-7.450); ABG PO2 44.6 mmHg (75.0-100.0); AaDO2 351.4 mmHg; COHb 0.4 % (0.5-1.5); MetHb 0.3 % (0.0-1.5); O2Hb 83.1 % (94.0-97.0); SITE, ABG Right Radial; VENT MODE, BG simple mask
--- NOTE | 2020-04-15 06:41 | NUR ---
RN NOTES STAT ABG result relayed to salesperson floor coverings MD. Received a call back from HYBRID DERIVATIVES TRADER Jillian Cobb with orders noted and carried out. Put patient on NRB as ordered. SpO2 maintained at 92%. For repeat ABG aroun 0730. Will endorse to the next RN.
[2020-04-15 06:52] LABS: BASOPHILS % (AUTO) 0.2 % (0.0-2.0); EOSINOPHILS % (AUTO) 3.2 % (0.0-6.0); HEMATOCRIT 42 % (33-45); HEMOGLOBIN 14.3 g/dL (11.5-14.8); LYMPHOCYTES # (AUTO) 1.2 /CMM (0.8-4.8); LYMPHOCYTES % (AUTO) 12.2 % (20.0-44.0); MEAN CORPUSCULAR HGB CONC 34 g/dl (31.0-36.0); MEAN CORPUSCULAR VOLUME 90 fL (82-100); MONOCYTES # (AUTO) 0.4 /CMM (0.1-1.30); NEUTROPHILS # (AUTO) 7.8 /CMM (1.8-8.9); NEUTROPHILS % (AUTO) 80.4 % (43.0-81.0); PLATELET COUNT (AUTO) 413 /CMM (150-450); RED BLOOD CELL COUNT(AUTO) 4.63 MIL/uL (4.0-5.2); WHITE BLOOD COUNT (AUTO) 9.8 K/uL (4.3-11.0)
--- NOTE | 2020-04-15 07:05 | NUR ---
RN CLOSING NOTES Pt on bed on NRB. All nursing needs attended. Due meds given as ordered. Closely monitored for MAGY accordingly. Kept on bed clean, dry and comfortable. On fall and aspiration precautions. For repeat ABG once RT available. Endorsed.
--- NOTE | 2020-04-15 07:05 | NUR ---
MS RN NOTES RECEIVED PATIENT IN BED ASLEEP, AROUSABLE TO VERBAL AND TACTILE STIMULI. REMAIN ON NON-REBREATHER MASK AT 15L O2. HOB ELEVATED. PATIENT OPENS EYES WHEN CALLED BY NAME. BILATERAL WRIST RESTRAINTS IN PLACE WITH SKIN CHECK AND CIRCULATION DONE. DENIES ANY C/O PAIN NOR DISCOMFORT WHEN QUESTIONED. CRUZ MIDLINE INTACT AND PATENT. BED IN LOWEST POSITION, LOCKED. FREQUENT VISUAL CHECK DONE. WILL CONTINUE TO MONITOR FOR CHANGES.
[2020-04-15] MEDS: PANTOPRAZOLE 40 MG TABLET.DR PO SCH (07:12)
[2020-04-15 07:13] LABS: CALCIUM, SERUM 8.4 mg/dL (8.5-10.1); MAGNESIUM 1.9 mg/dL (1.8-2.4); PHOSPHORUS 3.3 mg/dL (2.5-4.9); POTASSIUM 3.5 mmol/L (3.5-5.1)
--- NOTE | 2020-04-15 08:10 | NUR ---
MS RN NOTES REPEAT ABG DONE BY RT.
[2020-04-15 08:15] LABS: ABG BASE EXCESS 3.3 mmol/L; ABG OXYGEN SATURATION 81.7 % (92.0-98.5); ABG PCO2 29.4 mmHg (35.0-45.0); ABG PH 7.545 (7.350-7.450); ABG PO2 40.6 mmHg (75.0-100.0); AaDO2 354.9 mmHg; COHb 0.4 % (0.5-1.5); O2Hb 81.4 % (94.0-97.0); VENT MODE, BG simple mask
--- NOTE | 2020-04-15 08:20 | NUR ---
MS RN NOTES RECEIVED ABG RESULT, RELAYED TO DR. ROBERTSON WITH ORDER FOR TRANSFER TO ICU.
[2020-04-15] MEDS: ASPIRIN 81 MG TAB.CHEW PO SCH (09:00)
[2020-04-15] MEDS: ACIDOPHILUS/BULGARICUS 1 EACH TAB.CHEW PO SCH (09:00)
[2020-04-15] MEDS: ENSURE ENLIVE 237 ML LIQUID (VANILLA) PO SCH ×2 (09:00→16:03)
[2020-04-15] MEDS: CALCIUM CARB 600MG /VIT D 1 EACH TABLET PO SCH (09:00)
[2020-04-15] MEDS: ALLOPURINOL 100 MG TABLET PO SCH (09:00)
--- NOTE | 2020-04-15 09:20 | NUR ---
MS RN NOTES PATIENT TRANSFERRED TO ICU ROOM 253 VIA ACLS PROTOCOL, BEDSIDE REPORT GIVEN TO ASHLEY ODOM RN.
--- NOTE | 2020-04-15 09:25 | NUR ---
PATIENT TRANSFERRED FROM [facility] TO [facility]. PATIENT COVID POSITIVE ON 100 % NRBM UPON TRANSFER. ABG DONE PRIOR TO TRANSFER. DISCUSSED WITH ACADEMIC HOSPITALIST DR. VORA-TO PLACE PATIENT ON HI FLOW OXYGEN ON ARRIVAL -90% AT 60 L. NO ACUTE RESPIRATORY DISTRESS NOTED. PLACED ON SEMI FOWLERS POSITION. PATIENT AWAKE BUT LETHARGIC. UNABLE TO FOLLOW SIMPLE COMMANDS. SR-70'S ON MONITOR. SBP >100.
--- NOTE | 2020-04-15 09:32 | NUR ---
MS RN NOTES RELAYED TO DR. ROBERTSON, PATIENT DIDN'T EAT BREAKFAST, TOO A SIP OF WATER BUT DOES NOT WANT TO TAKE ANYTHING AFTER THAT, ATTEMPTED NUMEROUS TIMES BUT TO NO AVAIL WITH ORDERS TO HOLD AM MEDS AT THIS TIME.
--- NOTE | 2020-04-15 10:05 | NUR ---
REO ASSET MANAGER - PATIENT IS LETHARGIC UNABLE TO SWALLOW MEDICATION MS2- ASPIRATION PRECAUTION IMPLEMENTED .
--- NOTE | 2020-04-15 12:45 | NUR ---
DINKEY PRESS OPERATOR - FOR SUPPORTIVE CARE IF POSSIBLE 80% FIO2 50% IF PATIENT IS ABLE TO TOLERATE. ORIGINAL ORDERS 90% FIO2 60L RT NOTIFIED
[2020-04-15] MEDS ORDERED: methylPREDNISolone SOD SUCC 40 MG/ML VIAL IV SCH (13:00)
--- NOTE | 2020-04-15 15:27 | NUR ---
BOBBIN CLEANER - FAMILY MEMBER CALLED- UPDATES - NOTIFIED DAUGHTER ABOUT VENT SETTINGS CHANGES .
[2020-04-15] MEDS: INVESTIGATIONAL MED MISC 1 EA in IV NS 0.9% 250 ML IV SCH (16:49)
[2020-04-15] MEDS: MAGNESIUM OXIDE 400 MG TABLET PO SCH (17:01)
[2020-04-15] MEDS: ESCITALOPRAM OXALATE (10 MG) 10 MG TABLET PO SCH (17:01)
--- NOTE | 2020-04-15 17:45 | NUR ---
DIGITAL STRATEGIST - MS. VÁZQUEZ SAW PATIENT .
--- NOTE | 2020-04-15 18:23 | NUR ---
E LEARNING COORDINATOR - CLOSING PATIENT ALERT ORIENT X1. PATIENT CONFUSED. CALLED FOR HELP. PATIENT STATE SHE DOES NOT FEEL WELL. AWARE OF HER NAME BUT UNABLE TO REMEMBER HER BIRTHDAY OR WHERE SHE IS . PATIENT ON HIGH FLOW @ 80% FIO2 WITH 50L FLOW. PATIENT TOLERATING WELL SATURATING >95 %. PATIENT ON WARDROBE ATTENDANT 60/70'S PATIENT NO BOWELS PATIENT HAS SACRAL REDNESS OFF LOADING. PATIENT HAS RESTRAINT ON BILATERAL WRIST. NO SIGNS OF SKIN BREAKDOWN ON THE WRIST. PATIENT CAP < 3 SECS. PATIENT ON SOFT DIET. BUT DURING TRANSFER TO ICU - PATIENT WAS UNABLE TO EAT AND LETHARGIC. PO MEDICATION NOT GIVEN DURING AM SHIFT. CRUZ PICK LINE NO SIGNS OF INFILTRATION OR S/S OF INFECTION. RECENT CHEST SHOWS WORSENING BI LOWER LUNG EDEMA. BED LOCKED LOWEST POSITION CALL LIGHT WITH IN REACH ALL SAFETY MEASURES IMPLEMENTED PER HOSPITAL POLICY. 2X RAILS UP PATIENT TURN AND REPOSITION Q2H .
--- NOTE | 2020-04-15 19:20 | NUR ---
UNDERWATER WELDER NOTE RECEIVED PATIENT IN BED ALERT ORIENTED X1 CLOSE EYES,ON HI FLOW OXYGEN 50L FIO2 80% IV SITE IS ON RIGHT UPPER ARM MID LINE PATENT INTACT,TKO RUNNING 10CC/HR. ON BILATERAL RESTRAINS,INCONTINENT TO BOWEL AND BLADDER,IMPALEMENT SAFETY MEASURE,BED LOCKED IN LOW POSITION,CONTINUE TO MONITOR.
--- NOTE | 2020-04-15 19:21 | NUR ---
RN NOTE PATIENT IS ON MONITORING FOR COVID POSITIVE, AND DROPLET/CONTACT ISOLATION,CONTINUE TO MONITOR.
--- NOTE | 2020-04-15 19:22 | NUR ---
RN NOTE TITRATE O2 TO 40L HI FLOW OXYGEN FIO2 80% CONTINUE TO MONITOR.
[2020-04-15] MEDS: ENOXAPARIN SODIUM 40 MG/0.4 ML DISP.SYRIN SQ SCH (21:09)
[2020-04-15] MEDS: ATORVASTATIN 10 MG TABLET PO SCH (21:09)
[2020-04-16] VITALS (42 sets, daily range): BP systolic 70–144; BP diastolic 36–81
[2020-04-16] MEDS ORDERED: NOREPINEPHRINE 8 MG in IV NS 0.9% 242 ML IV PRN (01:00)
[2020-04-16] MEDS ORDERED: NOREPINEPHRINE 8MG/250ML RTU 250 ML IV ONE (01:01)
--- NOTE | 2020-04-16 01:15 | NUR ---
RN NOTE PATIENT DROPPED BLOOD PRESSURE TO 70/[address] AND RECEIVED ORDER FOR NOREPINEPHRINE DRIP STARTED 0.1 MCG/KG/MIN CONTINUE TO MONITOR
--- NOTE | 2020-04-16 02:26 | NUR ---
RN NOTE BP IS 88/43 INCREASE NOREPINEPHINE FROM 0.1 MCG/KG/MIN TO 0.2MCG/KG/MIN CONTINUE TO MONITOR.
--- NOTE | 2020-04-16 02:36 | NUR ---
RN NOTE TITRATE LEVOPHED FROM 0.2 TO 0.3 MCG/KG/MIN BP 84/36
--- NOTE | 2020-04-16 02:42 | NUR ---
RN NOTE TITRATE LEVOPHD FROM 0.3 TO 0.4 BP 85/40
--- NOTE | 2020-04-16 02:53 | NUR ---
RN NOTE TITRATE LEVOPHED FROM 0.4 TO 0.5 MCG/KG/MIN CONTINUE TO MONITOR
--- NOTE | 2020-04-16 03:00 | NUR ---
RN NOTE HOLD LEVOPHD BP 181/75 CONTINUE TO MONITOR.
--- NOTE | 2020-04-16 03:15 | NUR ---
RN NOTE CALLED DR FOR HIGH BP DR ORDERED STAT EKG NOTED AND CARRIED OUT.
[2020-04-16] MEDS: PIPERACILLIN /TAZOBACTAM 3.375 G in IV D5W 50 ML IV SCH ×3 (04:34→21:12)
--- NOTE | 2020-04-16 04:35 | NUR ---
RN NOTE BP 65/43 CONTINUE LEVOPHED 0.1 MCG/KG/MIN CONTINUE TO MONITOR
--- NOTE | 2020-04-16 04:54 | NUR ---
RN NOTE BP IS 146/56 LEVOPHD TITRATE TO 0.05MCG/KG/MIN CONTINUE TO MONITOR
[2020-04-16 05:10] LABS: BASOPHILS % (AUTO) 0.2 % (0.0-2.0); EOSINOPHILS % (AUTO) 3.5 % (0.0-6.0); HEMATOCRIT 40 % (33-45); HEMOGLOBIN 13.7 g/dL (11.5-14.8); LYMPHOCYTES # (AUTO) 1.5 /CMM (0.8-4.8); LYMPHOCYTES % (AUTO) 16.6 % (20.0-44.0); MEAN CORPUSCULAR HGB CONC 34 g/dl (31.0-36.0); MEAN CORPUSCULAR VOLUME 91 fL (82-100); MONOCYTES # (AUTO) 0.4 /CMM (0.1-1.30); MONOCYTES % (AUTO) 4.7 % (2.0-12.0); NEUTROPHILS # (AUTO) 6.9 /CMM (1.8-8.9); PLATELET COUNT (AUTO) 430 /CMM (150-450); RED BLOOD CELL COUNT(AUTO) 4.41 MIL/uL (4.0-5.2); WHITE BLOOD COUNT (AUTO) 9.2 K/uL (4.3-11.0)
[2020-04-16 05:31] LABS: CALCIUM, SERUM 8.3 mg/dL (8.5-10.1); CREATININE 1.2 mg/dL (0.6-1.3); MAGNESIUM 2.1 mg/dL (1.8-2.4); PHOSPHORUS 3.3 mg/dL (2.5-4.9); POTASSIUM 3.6 mmol/L (3.5-5.1)
--- NOTE | 2020-04-16 07:01 | NUR ---
RN CLOSING NOTE PATIENT REMAINS ON ALERT ORIENTED X1 ON 40L HIGH FLOW OXYGEN FIO2 80% 02:98% NO SOB NOTED ON MONITORING FOR COVID POSITIVE AND DROPLET/CONTACT ISOLATION,ON LEVOPHD DRIP 0.05 MCG/KG/MIN BP 134/59 IV IS ON RIGHT UPPER ARM MID LINE INTACT PATIENT ALL DUE MEDS GIVEN MD ORDERED,KEPT CLEAN AND DRY ALL THE TIME,SAFETY MEASURE IMPLEMENTED,ENDORSE NEXT COMING SHIFT FOR CONTINUATION OF CARE.
--- NOTE | 2020-04-16 07:15 | NUR ---
RN OPENING NOTE: Patient received in bed and asleep. On cont o2 via high flow @ 40l @ 80% fio2 with saturation noted @ 99%. No SOB and not in respiratory distress. Tele monitor showing sinus rhythm in the 70s. Isolation precaution in place for COVID-19. IV site clean, dry, patent and intact. On Levophen @ 0.05mcg/kg/min being tolerated well. No pain noted on patient. Call light in reach. Bed locked, low and at semi-mueller's position. Side rails up x3. Safety ensured and observed. Will continue to monitor.
[2020-04-16] MEDS: PANTOPRAZOLE 40 MG TABLET.DR PO SCH (08:06)
[2020-04-16 09:53] LABS: C-REACTIVE PROTEIN 24.4 mg/dL (0.0-0.9)
[2020-04-16 10:04] LABS: ABG BASE EXCESS 2.2 mmol/L; ABG OXYGEN SATURATION 92.9 % (92.0-98.5); ABG PCO2 29.8 mmHg (35.0-45.0); ABG PH 7.526 (7.350-7.450); ABG PO2 60.5 mmHg (75.0-100.0); AaDO2 262.5 mmHg; COHb 0.7 % (0.5-1.5); MetHb 0.1 % (0.0-1.5); O2Hb 92.2 % (94.0-97.0); SITE, ABG Right Brachial; VENT MODE, BG HFNC
[2020-04-16] MEDS: methylPREDNISolone SOD SUCC 40 MG/ML VIAL IV SCH (10:05)
[2020-04-16] MEDS: ENOXAPARIN SODIUM 40 MG/0.4 ML DISP.SYRIN SQ SCH (10:06)
[2020-04-16] MEDS: ASPIRIN 81 MG TAB.CHEW PO SCH (11:00)
[2020-04-16] MEDS: ACIDOPHILUS/BULGARICUS 1 EACH TAB.CHEW PO SCH (11:00)
[2020-04-16] MEDS: ALLOPURINOL 100 MG TABLET PO SCH (11:00)
[2020-04-16] MEDS: ENSURE ENLIVE 237 ML LIQUID (VANILLA) PO SCH ×2 (11:00→18:12)
[2020-04-16] MEDS: CALCIUM CARB 600MG /VIT D 1 EACH TABLET PO SCH (11:00)
[2020-04-16 11:40] LABS: ALBUMIN 2.1 g/dL (3.4-5.0); BILIRUBIN,DIRECT 0.3 mg/dL (0.0-0.2); TOTAL PROTEIN, SERUM 6.6 g/dL (6.4-8.2)
--- NOTE | 2020-04-16 15:05 | NUR ---
RN note: Informed Dr. Feliciano that patient refused PO medications and breakfast and lunch. Blood Sugar was checked at approximately 1230 and was 115 (however it did not post in the system). No S/sx of hypoglycemia noted. Vitals signs currently stable. Awaiting response.
[2020-04-16] MEDS: INVESTIGATIONAL MED MISC 1 EA in IV NS 0.9% 250 ML IV SCH (17:18)
--- NOTE | 2020-04-16 17:28 | NUR ---
RT 0806 : RECEIVED PT ON HFNC, 40L 80% FIO2, SP02 99%. FIO2 DECREASED TO 60% DUE TO TOLERATING SETTINGS WELL. 0930: REPORT GIVEN TO DR DOTSON ON PTS CURRENT SETTINGS, PER MD PLACE PT ON LOWER FIO2. FIO2 WAS DECREASED TO 50%. 10:04: ABG DONE AND RESULTS RELAYED TO RN AND MD. 1728: PT TOLERATING CURRENT SETTINGS, NO SOB OR RESP DISTRESS. SP02 98-99% T/O SHIFT. WILL ENDORSE TO NOC SHIFT FOR MAGY.
[2020-04-16] MEDS: MAGNESIUM OXIDE 400 MG TABLET PO SCH (18:12)
[2020-04-16] MEDS: ESCITALOPRAM OXALATE (10 MG) 10 MG TABLET PO SCH (18:12)
--- NOTE | 2020-04-16 19:20 | NUR ---
MACHINE HOSTLER OPENING NOTES: Rec'd pt in bed awake watching TV A&Ox1. On isolation precautions for positive Covid. On high flow O2 40L at 60% fio2, tolerating well. No SOB or resp distress noted. Breathing even and unlabored. Sinus rhythm on tele monitor. Right upper arm midline patent and flushed w/ Levo infusing at 0.02mcg/kg/min. Will titrate per protocol. On bilateral soft wrist restraints. Will remove and check circulation per protocol. Safety measures in place. Will continue to monitor.
--- NOTE | 2020-04-16 19:27 | NUR ---
RN CLOSING NOTE: Patient remains in bed. Awake, alert and oriented x1. On cont o2 via high flow @ 40l @ 60% fio2 with saturation noted @ 99%. No SOB and not in respiratory distress. Tele monitor showing sinus rhythm in the 70s. Isolation precaution in place for COVID-19. IV site clean, dry, patent and intact. On Levophed @ 0.02mcg/kg/min being tolerated well. Spoke to Raquel Penn (Daughter and listed as responsible democrat per previous records) earlier on shift and indicated that if her sister does call (Caitlin Cox) to have her call her to get an update regarding mother's situation. Awaiting convalescent plasma dose to be administered x1, once available. No pain noted on patient. Call light in reach. Bed locked, low and at semi-mueller's position. Side rails up x3. Safety ensured and observed. Treatment given as ordered. Endorsed to oncoming shift for MAGY.
[2020-04-16] MEDS: ATORVASTATIN 10 MG TABLET PO SCH (21:12)
[2020-04-17] VITALS (43 sets, daily range): BP systolic 95–212; BP diastolic 43–139
--- NOTE | 2020-04-17 03:30 | NUR ---
LEAF TINNER NOTE: Pt BP stable, Levo off. Will continue to monitor.
[2020-04-17 04:59] LABS: BASOPHILS % (AUTO) 0.1 % (0.0-2.0); EOSINOPHILS % (AUTO) 1.2 % (0.0-6.0); HEMATOCRIT 36 % (33-45); HEMOGLOBIN 12.3 g/dL (11.5-14.8); LYMPHOCYTES % (AUTO) 7.8 % (20.0-44.0); MEAN CORPUSCULAR HGB CONC 34 g/dl (31.0-36.0); MEAN CORPUSCULAR VOLUME 90 fL (82-100); MONOCYTES # (AUTO) 0.6 /CMM (0.1-1.30); MONOCYTES % (AUTO) 4.3 % (2.0-12.0); NEUTROPHILS # (AUTO) 11.3 /CMM (1.8-8.9); NEUTROPHILS % (AUTO) 86.6 % (43.0-81.0); PLATELET COUNT (AUTO) 400 /CMM (150-450); RED BLOOD CELL COUNT(AUTO) 3.99 MIL/uL (4.0-5.2); WHITE BLOOD COUNT (AUTO) 13.1 K/uL (4.3-11.0)
[2020-04-17] MEDS: PIPERACILLIN /TAZOBACTAM 3.375 G in IV D5W 50 ML IV SCH ×3 (05:00→18:19)
[2020-04-17 05:20] LABS: ALBUMIN 1.8 g/dL (3.4-5.0); BILIRUBIN,DIRECT 0.3 mg/dL (0.0-0.2); BILIRUBIN,TOTAL 0.8 mg/dL (0.2-1.0); CREATININE 1.1 mg/dL (0.6-1.3); POTASSIUM 3.3 mmol/L (3.5-5.1); TOTAL PROTEIN, SERUM 5.9 g/dL (6.4-8.2)
[2020-04-17] MEDS ORDERED: IV NS 0.9% 250 ML IV PRN (06:00)
--- NOTE | 2020-04-17 07:13 | NUR ---
CLINICAL RESEARCH DIRECTOR CLOSING NOTES: Pt remains stable throughout shift. On high flow 40LPm at 60% tolerating well. No SOB or resp distress noted. SR on tele monitor. No pain noted throughout shift. IV line patent and flushed. All due meds given as ordered. Kept clean/dry. Safety measures in place. Will endorse to oncoming nurse for MAGY.
--- NOTE | 2020-04-17 07:48 | NUR ---
RT PATIENT FIO2 TITRATED TO 6L N/C MICHELLE WELL. ELOISE SPIVEY NOTIFIED.
[2020-04-17] MEDS: ALLOPURINOL 100 MG TABLET PO SCH (08:25)
[2020-04-17] MEDS: ACIDOPHILUS/BULGARICUS 1 EACH TAB.CHEW PO SCH (08:25)
[2020-04-17] MEDS: PANTOPRAZOLE 40 MG TABLET.DR PO SCH (08:25)
[2020-04-17] MEDS: ENSURE ENLIVE 237 ML LIQUID (VANILLA) PO SCH ×2 (08:25→17:02)
[2020-04-17] MEDS: CALCIUM CARB 600MG /VIT D 1 EACH TABLET PO SCH (08:25)
[2020-04-17] MEDS: methylPREDNISolone SOD SUCC 40 MG/ML VIAL IV SCH (08:25)
[2020-04-17] MEDS: ASPIRIN 81 MG TAB.CHEW PO SCH (08:25)
--- NOTE | 2020-04-17 08:30 | NUR ---
RN OPENING NOTE: RECEIVED PATIENT IN BED THIS MORNING. PATIENT IS AAOX1, LETHARGIC AND CONFUSED. SR IN THE 70S ON THE MONITOR. SATING WELL ON NC 6L/MIN. NO SIGNS OF ACUTE DISTRESS NOTED AT THIS TIME. WOUND CARE PER ORDERS. CRUZ MIDLINE, C/D/I, FLUSHING WELL, NO SIGNS OF COMPLICATIONS NOTED. SAFETY MEASURES IMPLEMENTED, BED IN LOWEST POSITION, LOCKED, SIDE RAILS UP, CALL LIGHT WITHIN REACH. WILL CONTINUE TO MONITOR PATIENT FOR CHANGES.
[2020-04-17] MEDS: ACETAMINOPHEN 325 MG TABLET PO PRN (10:57)
--- NOTE | 2020-04-17 11:17 | NUR ---
CONVALESCENT PLASMA ADMINISTERED. PATIENT TOLERATED WELL. VSS. TYLENOL GIVEN FOR LOW GRADE FEVER. TEMPERATURE DOWN TO 99.1F. WILL CONTINUE TO MONITOR PATIENT.
[2020-04-17] MEDS ORDERED: POTASSIUM CHLORIDE 20 MEQ POWDER PACKET PO ONE (12:00)
[2020-04-17] MEDS: INVESTIGATIONAL MED MISC 1 EA in IV NS 0.9% 250 ML IV SCH (17:02)
[2020-04-17] MEDS: MAGNESIUM OXIDE 400 MG TABLET PO SCH (17:11)
[2020-04-17] MEDS: ESCITALOPRAM OXALATE (10 MG) 10 MG TABLET PO SCH (17:11)
--- NOTE | 2020-04-17 18:50 | NUR ---
RN CLOSING NOTE: PATIENT REMAINS IN BED. NO SIGNS OF ACUTE DISTRESS NOTED AT THIS TIME. SR IN THE 60S ON BEDSIDE MONITOR. SAFETY MEASURES IMPLEMENTED, BED IN LOWEST POSITION, LOCKED, SIDE RAILS UP, CALL LIGHT WITHIN REACH. WILL ENDORSE TO ONCOMING SHIFT RN FOR CONTINUITY OF CARE.
--- NOTE | 2020-04-17 19:30 | NUR ---
RN NOTES RECEIVED PATIENT IN BED AOX1 LETHARGIC AND CONFUSED. BREATHING NORMAL NO SOB NOTED RESPIRATION EVEN NON LABORED. ON 6L OXYGEN VIA NC SATURATING 98%. TELE MONITOR READING SR IN 60'S. CRUZ MIDLINE INTACT PATENT AND FLUSHES WELL. INCONTINENT WITH B&B. ON SOFT DIET. BUE SOFT RESTRAINS IN PLACE FOR SAFETY. SAFETY MEASURES IN PLACE, SIDE RAILS UP, CALL LIGHT WITHIN REACH. WILL CONT TO MONITOR FOR MAGY.
[2020-04-17] MEDS: ENOXAPARIN SODIUM 40 MG/0.4 ML DISP.SYRIN SQ SCH (21:08)
[2020-04-17] MEDS: ATORVASTATIN 10 MG TABLET PO SCH (21:08)
--- NOTE | 2020-04-17 22:00 | NUR ---
CHANGE THE PATIENT KEPT CLAN DRY AND COMFORTABLE, REPOSITION FOR COMFORT. SAFETY MEASURES IN PLACE. CALL LIGHT WITHIN REACH.
--- NOTE | 2020-04-17 22:30 | NUR ---
PATIENT REFUSED TO INSERT F/C OFFERED X3 RISK AND BENEFITS EXPLAINED. PATIENT STRONGLY REFUSED.
[2020-04-18] VITALS (15 sets, daily range): BP systolic 119–155; BP diastolic 52–82
[2020-04-18] MEDS: PIPERACILLIN /TAZOBACTAM 3.375 G in IV D5W 50 ML IV SCH ×5 (00:02→23:11)
[2020-04-18 04:41] LABS: BASOPHILS % (AUTO) 0.3 % (0.0-2.0); EOSINOPHILS % (AUTO) 1.2 % (0.0-6.0); HEMATOCRIT 38 % (33-45); MEAN CORPUSCULAR HGB CONC 34 g/dl (31.0-36.0); MEAN CORPUSCULAR VOLUME 89 fL (82-100); MONOCYTES # (AUTO) 0.4 /CMM (0.1-1.30); MONOCYTES % (AUTO) 4.9 % (2.0-12.0); NEUTROPHILS # (AUTO) 7.4 /CMM (1.8-8.9); NEUTROPHILS % (AUTO) 82.6 % (43.0-81.0); PLATELET COUNT (AUTO) 404 /CMM (150-450); RED BLOOD CELL COUNT(AUTO) 4.22 MIL/uL (4.0-5.2)
[2020-04-18 05:12] LABS: CALCIUM, SERUM 8.4 mg/dL (8.5-10.1); MAGNESIUM 2.1 mg/dL (1.8-2.4); PHOSPHORUS 1.9 mg/dL (2.5-4.9)
[2020-04-18 05:28] LABS: C-REACTIVE PROTEIN 12.3 mg/dL (0.0-0.9)
--- NOTE | 2020-04-18 07:19 | NUR ---
RN NOTES NO CHANGES NOTED DURING SHIFT PATIENT REMAINED STABLE. NO S/S OF ACUTE DISTRESS NOTED. DENIES ANY PAIN OR DISCOMFORT. VITAL SIGNS REMAINED WNL. DUE MEDICATIONS WERE GIVEN ORDERED. MOUTH CARE PROVIDED. REPOSITION FOR COMFORT. BUE SOFT RESTRAINS IN PLACE FOR SAFETY. KEPT CLEAN DRY AND COMFORTABLE. ALL NEEDS ATTENDED. SAFETY MEASURES IN PLACE. ENDORSE TO AM NURSE FOR MAGY.
--- NOTE | 2020-04-18 08:00 | NUR ---
RN OPENING NOTE: RECEIVED PATIENT IN BED THIS MORNING. PATIENT IS AAOX1, CONFUSED. NO SIGNS OF ACUTE DISTRESS NOTED AT THIS TIME. SATING WELL ON 6L/MIN VIA NC. SB IN THE 50S ON BEDSIDE MONITOR. CRUZ MIDLINE, C/D/I, FLUSHING WELL, NO SIGNS OF COMPLICATIONS NOTED. SAFETY MEASURES IMPLEMENTED, BED IN LOWEST POSITION, LOCKED, SIDE RAILS UP, CALL LIGHT WITHIN REACH. WILL CONTINUE TO MONITOR PATIENT FOR CHANGES.
[2020-04-18] MEDS: ALLOPURINOL 100 MG TABLET PO SCH (08:19)
[2020-04-18] MEDS: CALCIUM CARB 600MG /VIT D 1 EACH TABLET PO SCH (08:19)
[2020-04-18] MEDS: PANTOPRAZOLE 40 MG TABLET.DR PO SCH (08:19)
[2020-04-18] MEDS: ASPIRIN 81 MG TAB.CHEW PO SCH (08:19)
[2020-04-18] MEDS: ACIDOPHILUS/BULGARICUS 1 EACH TAB.CHEW PO SCH (08:19)
[2020-04-18] MEDS: ENSURE ENLIVE 237 ML LIQUID (VANILLA) PO SCH ×2 (08:20→17:31)
[2020-04-18] MEDS: methylPREDNISolone SOD SUCC 40 MG/ML VIAL IV SCH (08:20)
--- NOTE | 2020-04-18 08:50 | NUR ---
WOUND CARE CONSULT: REVIEWED CHART, NURSING DOCUMENTATION AND PHOTO WHICH INDICATES SKIN LESIONS TO UPPER BACK, PRESENT ON ADMISSION. PER NURSING REPORT SOME BRUISING/DISCOLORATION NOTED TO ARMS. RECOMMENDATIONS MADE FOR SKIN PROTECTION. DISCUSSED WITH NURSING STAFF. PT IS ON [facility] LOW AIRLOSS BED. WILL SEE PRDavid MALDONADO IN AGREEMENT WITH PLAN OF CARE.
--- NOTE | 2020-04-18 11:00 | NUR ---
COMPUTER SCIENTISTPLASTER MIXER NOTES PT TRANSPORTED FROM ICU TO MS-2 UNIT BY BED AT THIS TIME WITH ACLS PROTOCOL IN PLACE. NO SOB NOTED, AOX1, PERIODS OF CONFUSION. NO S/S OF ANY ACUTE DISTRESS NOTED. NO C/O PAIN AT THIS TIME. PT NOTED WITH BILATERAL SOFT WRIST RESTRAINS, PULSES PRESENT BILATERALLY, GOOD CIRCULATION, CAPILLARY REFILL <3SECONDS. SKIN IS WARM TO TOUCH. RESPIRATIONS ARE EVEN AND UNLABORED WITH EQUAL RISE AND FALL IN CHEST. CRUZ MIDLINE NOTED, INTACT, PATENT AND FLUSHING WELL. SAFETY AND ASPIRATION PRECAUTIONS IN PLACE AND MAINTAINED AT ALL TIMES. BED IN LOWEST LOCKED POSITION, HOB ELEVATED, SIDE RAILS UP X 2, CALL LIGHT WITHIN REACH. WILL CONTINUE TO MONITOR
--- NOTE | 2020-04-18 11:26 | NUR ---
TRANSFERRED PATIENT TO ROOM 202 AT 10:58. GAVE REPORT TO ELOISE VAZQUEZ. AT TIME OF TRANSFER, NO ACUTE DISTRESS NOTED. GAVE CHART WITH BELONGINGS. SAFETY MEASURES IMPLEMENTED, BED IN LOWEST POSITION, LOCKED, SIDE RAILS UP, CALL LIGHT WITHIN REACH.
--- NOTE | 2020-04-18 13:00 | NUR ---
BLAZE, PT'S DAUGHTER CALLED AND WAS UPDATED ON PT'S CONDITION. WILL CONTINUE WITH PLAN OF CARE
[2020-04-18] MEDS ORDERED: K PHOS NEUTRAL 250 MG TABLET PO ONE (15:30)
[2020-04-18] MEDS: MAGNESIUM OXIDE 400 MG TABLET PO SCH (17:35)
[2020-04-18] MEDS: ESCITALOPRAM OXALATE (10 MG) 10 MG TABLET PO SCH (17:35)
--- NOTE | 2020-04-18 18:58 | NUR ---
RN CLOSING NOTES PT RESTING IN BED AT THIS TIME. PT REMAINED STABLE THROUGHOUT SHIFT. ALL CARE, NEEDS, MEDICATIONS, AND TREATMENT ADMINISTERED ANTICIPATED PER ORDER. PT KEPT CLEAN AND DRY. PT REPOSITIONED Q2HR AND PER PROTOCOL. FALL, ASPIRATION AND SAFETY PRECAUTION IN PLACE AND MAINTAINED AT ALL TIMES. BED IN LOWEST LOCKED POSITION, HOB ELEVATED, SIDE RAILS UP X 2, CALL LIGHT WITHIN REACH. WILL ENDORSE TO TURKEY FARMER NURSE FOR MAGY
--- NOTE | 2020-04-18 19:05 | NUR ---
ACTING SECTION CHIEF OPENING NOTES: RECEIVED PATIENT IN BED, ASLEEP, AROUSABLE, A/O X2. NO S/S OF DISTRESS NOTED. NO COMPLAIN OF PAIN. BED IN LOWEST AND LOCKED POSITION. HOB ELEVATED AT 35 DEGREES AT ALL TIMES. WITH BILATERAL SOFT WRISTS RESTRAINTS ON,SKIN IS INTACT ON BOTH WRISTS,RIGHT ANTERIOR WRIST BRUISE NOTED, CIRCULATIONS WNL. WITH SCD'S ON BOTH LEGS APPLIED AND TURNED ON. CALL LIGHT WITHIN REACH.
[2020-04-18] MEDS: ATORVASTATIN 10 MG TABLET PO SCH (21:29)
[2020-04-18] MEDS: ENOXAPARIN SODIUM 40 MG/0.4 ML DISP.SYRIN SQ SCH (21:30)
[2020-04-19] VITALS: BP 117/63
--- NOTE | 2020-04-19 | NUR ---
PATIENT HAD A BM EARLIER, SMALL AMOUNT, BROWNISH COLOR,SOFT. CLEANSED PERINEAL AREA WITH SOAP AND WATER, KEPT DRIED, AND APPLIED MEPILEX ON THE SACROCOCCYX AREA, HAS VERY SLIGHTLY BLANCHABLE REDNESS. TURNED PATIENT TO THE LEFT SIDE WITH PILLOW AT THE BACK. HOB ELEVATED AT 40 DEGREES. BED IN LOWEST AND LOCKED POSITION.
[2020-04-19 04:00] VITALS: BP 140/68
[2020-04-19] MEDS: PIPERACILLIN /TAZOBACTAM 3.375 G in IV D5W 50 ML IV SCH (05:26)
--- NOTE | 2020-04-19 06:09 | NUR ---
ALMOND SORTER CLOSING NOTES: PATIENT IN BED, AWAKE. A/O X2, WITH PERIODS OF CONFUSION. NO S/S OF DISTRESS NOTED. NO COMPLAIN OF PAIN. HOB ELEVATED AT 40 DEGREES AT ALL TIMES. WITH SCD'S ON BOTH LEGS ON. WITH BILATERAL SOFT WRISTS RESTRAINTS ON, SKIN IS INTACT AND WITH GOOD CIRCULATIONS. BED IN LOWEST AND LOCKED POSITION. CALL LIGHT WITHIN REACH.
--- NOTE | 2020-04-19 07:15 | NUR ---
BEADER NOTES PATIENT IN BED ALERT ORIENTED X 2, WITH PERIOD OF CONFUSION. NO ACUTE DISTRESS NOTED. BREATHING UNLABORED. NO SOB NOTED. SAFETY MEASURES IN PLACE. BILATERAL SOFT RESTRAINT IN PLACE, CHECKED WITH GOOD CIRCULATION. CALL LIGHT WITHIN REACH. WILL CONTINUE TO MONITOR ACCORDINGLY.
[2020-04-19] MEDS: PANTOPRAZOLE 40 MG TABLET.DR PO SCH (07:34)
[2020-04-19 08:00] VITALS: BP 124/64
[2020-04-19] MEDS: ACIDOPHILUS/BULGARICUS 1 EACH TAB.CHEW PO SCH (08:10)
[2020-04-19] MEDS: ALLOPURINOL 100 MG TABLET PO SCH (08:10)
[2020-04-19] MEDS: ASPIRIN 81 MG TAB.CHEW PO SCH (08:10)
[2020-04-19] MEDS: CALCIUM CARB 600MG /VIT D 1 EACH TABLET PO SCH (08:10)
[2020-04-19] MEDS: methylPREDNISolone SOD SUCC 40 MG/ML VIAL IV SCH (08:10)
[2020-04-19] MEDS: ENSURE ENLIVE 237 ML LIQUID (VANILLA) PO SCH ×2 (08:11→17:04)
[2020-04-19 12:00] VITALS: BP 128/65
[2020-04-19] MEDS: PIPERACILLIN /TAZOBACTAM 3.375 G in IV D5W 100 ML IV SCH ×2 (12:47→21:12)
--- NOTE | 2020-04-19 13:58 | NUR ---
ACTIVE DIRECTORY ARCHITECT NOTES PATIENT SEEN AND EVALUATED BY DR DOTSON WITH ORDER FOR MAY TITRATE DOWN O2 TO KEEP SPO2 GREATER THAN 90%, ORDER CLARIFIED AND READ BACK WITH MD , NOTED AND CARRIED OUT.
[2020-04-19 16:00] VITALS: BP 107/57
[2020-04-19] MEDS: MAGNESIUM OXIDE 400 MG TABLET PO SCH (17:04)
[2020-04-19] MEDS: ESCITALOPRAM OXALATE (10 MG) 10 MG TABLET PO SCH (17:04)
--- NOTE | 2020-04-19 18:55 | NUR ---
REPAIR CAMERAMAN NOTES PATIENT IN BED ALERT ORIENTED X 2, WITH PERIOD OF CONFUSION. NO ACUTE DISTRESS NOTED. BREATHING UNLABORED. NO SOB NOTED , ON O2 VIA NC AT 1LPM SATURATING 94-97%. SAFETY MEASURES IN PLACE. HEAD OF BED ELEVATED. BILATERAL SOFT RESTRAINT IN PLACE, CHECKED WITH GOOD CIRCULATION.NEEDS ATTENDED AND ANTICIPATED. KEPT CLEAN DRY AND COMFORTABLE.TURN AND REPOSITION EVERY 2 HOURS AND NEEDED. CALL LIGHT WITHIN REACH. WILL ENDORSE TO NIGHT NURSE FOR CONTINUITY OF CARE.
[2020-04-19 20:00] VITALS: BP 144/77
--- NOTE | 2020-04-19 20:52 | NUR ---
MS2/RN DURING INITIAL ASSESSMENT, RECEIVED PATIENT ON BED AWAKE, PASSIVE AFFECT, ORIENTED TO NAME ONLY, NO C/O PAIN, NO SIGNS OF DISTRESS NOTED, O2 SAT AT 1LPM = 89%, TITRATED TO 4LPM WITH O2 SAT 94%. PLACED CALL LIGHT IN REACH, FALL PRECAUTIONS PER PROTOCOL
[2020-04-19] MEDS: ATORVASTATIN 10 MG TABLET PO SCH (21:59)
[2020-04-19] MEDS: ENOXAPARIN SODIUM 40 MG/0.4 ML DISP.SYRIN SQ SCH (22:00)
[2020-04-20 00:04] VITALS: BP 120/68
[2020-04-20 04:47] VITALS: BP 133/69
[2020-04-20] MEDS: PIPERACILLIN /TAZOBACTAM 3.375 G in IV D5W 100 ML IV SCH ×2 (05:06→12:36)
--- NOTE | 2020-04-20 05:58 | NUR ---
MS2/RN PATIENT IS SLEEPING AT THIS TIME, APPEAR COMFORTABLE, NO SIGNS OF DISTRESS NOTED, CALL LIGHT IN REACH, ALL NEEDS ATTENDED AT THIS TIME, WILL CONTINUE TO MONITOR.
--- NOTE | 2020-04-20 07:15 | NUR ---
PATHOLOGY TECH NOTES RECEIVED PATIENT IN BED ASLEEP, AROUSABLE TO VERBAL AND TACTILE STIMULI. ON 02 @ 4L/MIN VIA NC. NO SOB. . BILATERAL WRIST RESTRAINTS IN PLACE WITH SKIN CHECK AND CIRCULATION DONE. DENIES ANY C/O PAIN NOR DISCOMFORT WHEN QUESTIONED. CRUZ MIDLINE INTACT AND PATENT. BED IN LOWEST POSITION, LOCKED. FREQUENT VISUAL CHECK DONE. BED ALARM ON.
[2020-04-20 08:00] VITALS: BP 122/65
[2020-04-20] MEDS: PANTOPRAZOLE 40 MG TABLET.DR PO SCH (08:30)
[2020-04-20] MEDS: ALLOPURINOL 100 MG TABLET PO SCH (08:30)
[2020-04-20] MEDS: ACIDOPHILUS/BULGARICUS 1 EACH TAB.CHEW PO SCH (08:30)
[2020-04-20] MEDS: ASPIRIN 81 MG TAB.CHEW PO SCH (08:30)
[2020-04-20] MEDS: CALCIUM CARB 600MG /VIT D 1 EACH TABLET PO SCH (08:30)
[2020-04-20] MEDS: ENSURE ENLIVE 237 ML LIQUID (VANILLA) PO SCH ×2 (08:31→17:15)
[2020-04-20] MEDS: methylPREDNISolone SOD SUCC 40 MG/ML VIAL IV SCH (08:31)
[2020-04-20 12:00] VITALS: BP 168/80
[2020-04-20 16:00] VITALS: BP 112/58
[2020-04-20] MEDS ORDERED: DOXY100C2 PO (16:16)
[2020-04-20] MEDS: MAGNESIUM OXIDE 400 MG TABLET PO SCH (17:13)
[2020-04-20] MEDS: ESCITALOPRAM OXALATE (10 MG) 10 MG TABLET PO SCH (17:13)
--- NOTE | 2020-04-20 18:57 | NUR ---
DISTILLING DEPARTMENT SUPERVISOR NOTES PATIENT FOR DISCHARGE, REPORT GIVEN TO ELOISE SHIELDS AT [facility] . TITRATED PATIENT DURING THE SHIFT NOW ON 3L/MIN VIA NC WITH SPO2 OF 94-96%. CRUZ MIDLINE REMOVED WITH CATHETER TIP INTACT. ALL BELONGINGS ACCOUNTED FOR. PATIENT PICKED UP BY AMBULANCE ACCOMPANIED BY 2 EMT AND LEFT VIA GURNEY IN STABLE CONDITION.
== END 2020-04-20 19:00 | DRG 177 ==
LOC: ER 10:11 → MEDSG2 11:34 → ICU 04-15 08:48 → TELE2 04-18 11:03
PROVIDERS: ADMIT Nurse Practitioner Acute Care; ATTEND Nurse Practitioner Acute Care
PROC: 05H933Z Insertion of Infusion Device into Right Brachial Vein, Percutaneous Approach (ICD-10-PCS; 2020-04-05)
PROC: 30233L1 Transfusion of Nonautologous Fresh Plasma into Peripheral Vein, Percutaneous Approach (ICD-10-PCS; principal; 2020-04-16)
DX: U07.1 COVID-19 (principal); J12.89 Other viral pneumonia; N17.0 Acute kidney failure with tubular necrosis; J96.01 Acute respiratory failure with hypoxia; J15.9 Unspecified bacterial pneumonia; E87.1 Hypo-osmolality and hyponatremia; E87.2 Acidosis; A08.39 Other viral enteritis; J98.11 Atelectasis; J44.0 Chronic obstructive pulmonary disease with (acute) lower respiratory infection; M19.90 Unspecified osteoarthritis, unspecified site; F03.90 Unspecified dementia, unspecified severity, without behavioral disturbance, psychotic disturbance, mood disturbance, and anxiety; F32.9 Major depressive disorder, single episode, unspecified; E86.0 Dehydration; E87.6 Hypokalemia; E83.51 Hypocalcemia; I10 Essential (primary) hypertension; M10.9 Gout, unspecified; E78.5 Hyperlipidemia, unspecified; Z88.8 Allergy status to other drugs, medicaments and biological substances; Z88.1 Allergy status to other antibiotic agents; Z91.041 Radiographic dye allergy status; Z79.51 Long term (current) use of inhaled steroids; Z79.82 Long term (current) use of aspirin; Z79.899 Other long term (current) drug therapy; E86.1 Hypovolemia; R79.89 Other specified abnormal findings of blood chemistry; J45.909 Unspecified asthma, uncomplicated; J32.9 Chronic sinusitis, unspecified; I70.0 Atherosclerosis of aorta; F09 Unspecified mental disorder due to known physiological condition; E83.39 Other disorders of phosphorus metabolism; Z85.118 Personal history of other malignant neoplasm of bronchus and lung; Z74.09 Other reduced mobility
CPT/HCPCS: 36410; 36415; 36600; 71045-TC; 80048-TC; 80053-TC; 80061-TC; 80076-TC; 81000-TC; 82550-TC; 82553; 82728-TC; 82803-TC; 82962-TC; 83605-TC; 83615-TC; 83735-TC; 83880; 84100-TC; 84443-TC; 84484-TC; 85025-TC; 85378-TC; 85385-TC; 85610-TC; 85730-TC; 86140-TC; 86850-TC; 87040-TC; 87081-TC; 87086-TC; 93308-TC; 94760-TC; 94799-TC; 97116-TC; 97530-TC; A4217; G0378; J1100; J1650; J1940; J2060; J2543; J2920; J7030; J7050; J7060; P9017-BL; U0003-CS

== ENCOUNTER 2021-10-01 16:52 | Emergency (ER) | payer MEDICARE, BC ==
[~2021-10-01] VITALS: Ht 167.6 cm; Wt 79.8 kg
[~2021-10-01 16:52] MED LIST: ACET-868 PO; ACID1TAB12 PO; ALBU8.5H8 IH; ALLO100T PO; ASPI-1169 PO; ATOR10TA PO; BIOT5000 PO; CALC-1180 PO; CHOL100045 PO; DOXY100C2 PO; ESCI10TA PO; FLUT16SP NS; HYDR25TA4 PO; IBUP-2413 PO; MAGN400T8 PO; MECL-159 PO; MYRBETRIQ PO; NUT.237L28 PO; TELM80TA2 PO
--- NOTE | 2021-10-01 17:10 | NUR ---
[id number] FRM DANI, FOUND IN THE GROUND BY WHEELCHAIR. +FOREHEAD HEMATOMA, NO LOC PER DANI. PATIENT IS ALERT, ORIENTED X3. VITALS CHECKED. PLACED COMFORTABLY IN BED.
--- NOTE | 2021-10-01 17:20 | NUR ---
SEEN BY DR VIGIL AT BEDSIDE
--- NOTE | 2021-10-01 17:25 | NUR ---
PATIENT WAS WHEELED TO RADIOLOGY DEPT FOR CT SCAN
[2021-10-01] MEDS ORDERED: ACETAMINOPHEN ES 500 MG TABLET PO ONE (17:30)
[2021-10-01] MEDS ORDERED: ACETAMINOPHEN ES 500 MG TABLET ONE (17:32)
--- NOTE | 2021-10-01 18:33 | NUR ---
[facility] TRANSPORT ARRANGE VIA [facility] ETA 45 MINS.
--- NOTE | 2021-10-01 19:12 | NUR ---
PAGED DR. SMILEY
[2021-10-01 19:30] VITALS: BP 134/71
== END 2021-10-01 19:32 ==
LOC: ER 16:55
DX: S00.03XA Contusion of scalp, initial encounter (principal); M19.90 Unspecified osteoarthritis, unspecified site; Z86.69 Personal history of other diseases of the nervous system and sense organs; Z91.040 Latex allergy status; Z88.8 Allergy status to other drugs, medicaments and biological substances; Z79.1 Long term (current) use of non-steroidal anti-inflammatories (NSAID); Z79.51 Long term (current) use of inhaled steroids; Z79.82 Long term (current) use of aspirin; Z79.899 Other long term (current) drug therapy; W18.30XA Fall on same level, unspecified, initial encounter; Y93.89 Activity, other specified; Y92.89 Other specified places as the place of occurrence of the external cause; Y99.8 Other external cause status
CPT/HCPCS: 70450-TC; 72125-TC; 87081-TC

== ENCOUNTER 2021-12-10 16:17 | Emergency (ER) | payer MEDICARE, BC ==
[~2021-12-10] VITALS: Ht 167.6 cm; Wt 79.4 kg
--- NOTE | 2021-12-10 16:40 | NUR ---
BIB [facility] FROM [facility],DAUGHTER NOTED A LUMP IN THE ABDOMEN,DENIES ANY COMPLAINT. DENIES PAIN AT THIS TIME. IN ROOM AIR AND DENIES SOB. RESPIRATION REGULAR AND UNLABORED. WILL CONTINUE TO MONITOR THE PATIENT.
--- NOTE | 2021-12-10 18:38 | NUR ---
CALLED [facility] AND SET UP BLS TRANSPORT ETA [id number]
--- NOTE | 2021-12-10 19:25 | NUR ---
REPORT GIVEN TO NURSE DUMAS FOR MAGY
--- NOTE | 2021-12-10 20:16 | NUR ---
pt picked up by [facility] for transport back to facility. v/s stable at time of transport.
[2021-12-10 20:18] VITALS: BP 136/79
== END 2021-12-10 20:29 | disposition home or self-care (01) ==
LOC: ER 16:20
DX: K43.9 Ventral hernia without obstruction or gangrene (principal); M19.90 Unspecified osteoarthritis, unspecified site; Z88.8 Allergy status to other drugs, medicaments and biological substances; Z79.899 Other long term (current) drug therapy